=== PATIENT | male | born 1990 | race Caucasian/White ===

== ENCOUNTER 2018-04-02 13:18 | Emergency (ER) | payer MEDICARE, MEDICAID ==
[2018-04-02 13:28] VITALS: BP 149/96
--- NOTE | 2018-04-02 14:59 | ED Physician Documentation ---
History of Present Illness - Stated complaint Stated Complaint: ANXIETY - Chief complaint Chief Complaint: MHE - History obtained from History obtained from: Patient - Additonal information Additional information: The patient is a 28-year-old male who presents complaining of anxiety, with uncontrollable shaking today. He has had increased anxiety intermittently for the past month, but reports that today was more striking than usual. He has not been able to identify any specific trigger. He notes that he has not been sleeping well. He denies the use of alcohol or other drugs. He drank one cup of coffee this morning. There is been no recent change in his social setting. 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 He has a history of bipolar disorder, and is a patient at [facility], but was not able to be seen in the clinic today. Review of Systems Constitutional: reports: Fatigue. denies: Fever Ears: denies: Tinnitus/ringing Nose: denies: Congestion Throat: denies: Sore throat Cardiac: denies: Chest pain / pressure Respiratory: denies: Dyspnea, Cough GI: denies: Abdominal Pain, Nausea, Vomiting : denies: Dysuria Skin: denies: Rash Musculoskeletal: denies: Back pain Neurologic: denies: Focal weakness, Numbness, Altered mental status, Headache Psychiatric: reports: Anxiety PD PAST MEDICAL HISTORY - Past Medical History Respiratory: Asthma, Pneumonia Psych: Depression, Anxiety, Bipolar disorder, Schizophrenia - Past Surgical History Past Surgical History: No - Present Medications Home Medications: Ambulatory Orders Medication Instructions Recorded Confirmed Lorazepam [Ativan] 1 mg PO BID PRN #12 tablet 04/02/18 - Allergies Allergies/Adverse Reactions: Allergies Allergy/AdvReac Type Severity Reaction Status Date / Time cephalexin Allergy Unknown Verified 04/02/18 13:27 - Social History Does the pt smoke?: Yes Smoking Status: Never smoker Does the pt drink ETOH?: No Does the pt have substance abuse?: Yes - Immunizations Immunizations are current?: Yes - POLST Patient has POLST: No PD ED PE NORMAL - Vitals Vital signs reviewed: Yes (initially hypertensive.) - General General: Alert and oriented X 3, Well developed/nourished, Other (Appears solemn, with well-controlled anxiety at this time.) - HEENT HEENT: Atraumatic, Moist mucous membranes - Neck Neck: Supple, no meningeal sign, No adenopathy - Cardiac Cardiac: RRR - Respiratory Respiratory: No respiratory distress, Clear bilaterally - Abdomen Abdomen: Soft, Non tender - Derm Derm: No rash - Neuro Neuro: Alert and oriented X 3, No motor deficit, No sensory deficit, Normal speech - Psych Psych: Other (Blunted affect.) PD ED PE EXPANDED - Psych Psych: No: Suicidal, Homicidal Results - Vitals Vitals: Oxygen O2 Source Room air PD MEDICAL DECISION MAKING - ED course Complexity details: considered differential, d/w patient ED course: The patient's presentation is most consistent with an anxiety attack. His anxiety appears to be mostly under control at this time, but he appears distressed regarding the recurrent episodes. He has a follow-up appointment scheduled with his counselor at [facility]. He is being discharged with a prescription for lorazepam, 12 tablets. I discussed with him potentially worrisome signs or symptoms that should prompt reevaluation in the emergency department. Departure - Departure Disposition: 01 Home, Self Care Clinical Impression: Anxiety attack Condition: Stable Instructions: ED Stress React Prescriptions: Lorazepam [Ativan] 1 mg PO BID PRN #12 tablet PRN Reason: Anxiety Comments: Avoid coffee, elena, or other stimulants. Strive to get daily exercise as part of your routine. You can use lorazepam as prescribed if needed for anxiety reaction. Follow-up with primary physician within 2 weeks. Call to schedule appointment. Return to the emergency department if recurrent episodes of uncontrollable shaking, or otherwise worsening symptoms. Discharge Date/Time: 04/02/18 15:07
== END 2018-04-02 15:07 | disposition home or self-care (01) ==
LOC: ED 13:18
DX: F41.9 Anxiety disorder, unspecified (principal)
CPT/HCPCS: 99283

== ENCOUNTER 2018-04-09 12:02 | Emergency (ER) | payer MEDICARE, MEDICAID ==
[2018-04-09 12:13] VITALS: BP 145/87
--- NOTE | 2018-04-09 12:53 | ED Physician Documentation ---
History of Present Illness - Stated complaint Stated Complaint: NUMBNESS LT ARM - Chief complaint Chief Complaint: General - History obtained from History obtained from: Patient - History of Present Illness Timing: Chronic Pain level max: 0 Pain level now: 0 Improved by: ativan Worsened by: nothing - Additonal information Additional information: 28 year old male with a longstanding history of anxiety. States increasing anxiety since running out of ativan. was seen at [facility] But stopped going because he stated that the medications were not helping and he did not feel like he was getting any better. Review of Systems Constitutional: denies: Fever, Chills Ears: denies: Ear pain Nose: denies: Rhinorrhea / runny nose, Congestion Throat: denies: Sore throat Cardiac: reports: Chest pain / pressure (Patient states that he occasionally feels tightness in his chest when his anxiety worsens. He is not feeling this currently) Respiratory: denies: Cough GI: denies: Nausea, Vomiting Skin: denies: Rash Musculoskeletal: reports: Extremity pain (States that occasionally when he is having a panic attack his legs feel heavy). denies: Neck pain, Back pain PD PAST MEDICAL HISTORY - Past Medical History Respiratory: Asthma, Pneumonia Psych: Depression, Anxiety, Bipolar disorder, Schizophrenia - Past Surgical History Past Surgical History: No - Present Medications Home Medications: Ambulatory Orders Medication Instructions Recorded Confirmed Lorazepam [Ativan] 1 mg PO BID PRN #12 tablet 04/02/18 Lorazepam [Ativan] 1 mg PO BID #12 tablet 04/09/18 - Allergies Allergies/Adverse Reactions: Allergies Allergy/AdvReac Type Severity Reaction Status Date / Time cephalexin Allergy Unknown Verified 04/09/18 12:12 - Social History Does the pt smoke?: Yes Smoking Status: Never smoker Does the pt drink ETOH?: No Does the pt have substance abuse?: Yes - Immunizations Immunizations are current?: Yes - POLST Patient has POLST: No PD ED PE NORMAL - Vitals Vital signs reviewed: Yes - General General: Alert and oriented X 3, No acute distress - HEENT HEENT: Moist mucous membranes - Neck Neck: Supple, no meningeal sign - Cardiac Cardiac: RRR - Respiratory Respiratory: No respiratory distress, Clear bilaterally - Abdomen Abdomen: Soft, Non tender - Back Back: No spinal TTP - Derm Derm: Warm and dry - Neuro Neuro: Alert and oriented X 3 - Psych Psych: Other (very anxious) Results - Vitals Vitals: Vital Signs - 24 hr 04/09/18 12:10 Temperature 37 C Heart Rate 76 Respiratory 18 Rate Blood Pressure 145/87 H O2 Saturation 98 Oxygen O2 Source Room air - EKG (time done) 1220 Rate: Rate (enter#) (65) Rhythm: NSR [place]: Normal Intervals: Normal [place], RBBB (incomplete) Ischemia: Normal ST segments Compare to prior EKG: Old EKG unavailable PD MEDICAL DECISION MAKING - ED course Complexity details: reviewed results, re-evaluated patient, considered differential, d/w patient ED course: Patient is a 28-year-old male who presents to the emergency department with anxiety. He is well-appearing, nontoxic. Afebrile. Normal EKG. No evidence of acute coronary syndrome. Will place on a small amount of medication for home and have him follow-up with his doctor. No evidence of pneumothorax, pulmonary embolus, aortic dissection. Patient counseled regarding signs and symptoms for which I believe and urgent re-evaluation would be necessary. Patient with good understanding of and agreement to plan and is comfortable going home at this time This document was made in part using voice recognition software. While efforts are made to proofread this document, sound alike and grammatical errors may occur. Departure - Departure Disposition: 01 Home, Self Care Clinical Impression: Anxiety Condition: Good Instructions: ED Panic Attack Follow-Up: Stacie Brady [Other] [facility] [Provider Group] Prescriptions: Lorazepam [Ativan] 1 mg PO BID #12 tablet Comments: [id number], [address] [place], [place] [address] [email or web address] Follow up with your doctor for further care. Return if you worsen. do not drive or operate heavy machinery while on ativan. Forms: Activity restrictions Discharge Date/Time: 04/09/18 13:03
== END 2018-04-09 13:03 | disposition home or self-care (01) ==
LOC: ED 12:02
DX: F41.9 Anxiety disorder, unspecified (principal); I45.2 Bifascicular block
CPT/HCPCS: 93005; 99281; 99283

== ENCOUNTER 2018-05-06 10:51 | Emergency (ER) | payer MEDICARE, MEDICAID ==
[2018-05-06 11:02] VITALS: BP 160/81
--- NOTE | 2018-05-06 12:16 | ED Physician Documentation ---
PD HPI HEENT - Stated complaint Stated Complaint: SORE THROAT/ANXIETY - Chief complaint Chief Complaint: Heent - History obtained from History obtained from: Patient - History of Present Illness Timing - onset: How many weeks ago (1) Timing - duration: Weeks (1) Timing - details: Gradual onset, Still present Location: Nose, Throat Associated symptoms: Fever, Congestion, Rhinorrhea, Swollen nodes, Cough Similar symptoms before: Has not had sx before Recently seen: Not recently seen - Additional information Additional information: 28-year-old male with history of schizophrenia has developed a sore throat he does have a bit of a cough and a fever and he also has an area on his right inner thigh that has been inflamed and intermittently draining for the past 3 months. Review of Systems Constitutional: reports: Fever, Chills, Myalgias, Fatigue Eyes: denies: Decreased vision Ears: denies: Ear pain Nose: reports: Rhinorrhea / runny nose, Congestion Throat: reports: Sore throat Cardiac: denies: Chest pain / pressure, Palpitations Respiratory: reports: Cough. denies: Dyspnea GI: denies: Vomiting : denies: Dysuria Skin: reports: Lesions. denies: Rash Musculoskeletal: reports: Extremity pain. denies: Neck pain, Back pain Neurologic: denies: Generalized weakness, Focal weakness, Numbness PD PAST MEDICAL HISTORY - Past Medical History Past Medical History: Yes Respiratory: Asthma, Pneumonia Psych: Depression, Anxiety, Bipolar disorder, Schizophrenia - Past Surgical History Past Surgical History: No - Present Medications Home Medications: Ambulatory Orders Medication Instructions Recorded Confirmed Lorazepam [Ativan] 1 mg PO BID PRN #12 tablet 04/02/18 Lorazepam [Ativan] 1 mg PO BID #12 tablet 04/09/18 Amox/Clav 875/125 [Augmentin] 1 each PO Q12H #20 tablet 05/06/18 Lorazepam [Ativan] 1 mg PO BID PRN #12 tablet 05/06/18 - Allergies Allergies/Adverse Reactions: Allergies Allergy/AdvReac Type Severity Reaction Status Date / Time cephalexin Allergy Unknown Verified 05/06/18 11:02 - Social History Does the pt smoke?: Yes Smoking Status: Current every day smoker Does the pt drink ETOH?: No Does the pt have substance abuse?: Yes - Immunizations Immunizations are current?: Yes - POLST Patient has POLST: No PD ED PE NORMAL - Vitals Vital signs reviewed: Yes (hypertensive ) - General General: Alert and oriented X 3, No acute distress, Well developed/nourished - HEENT HEENT: Atraumatic, PERRL, EOMI, Ears normal, Other (There is unilateral tonsillar swelling on the right side and this is the side the patient has pain on. ) - Neck Neck: Supple, no meningeal sign, No bony TTP - Cardiac Cardiac: RRR, No murmur - Respiratory Respiratory: No respiratory distress, Clear bilaterally - Abdomen Abdomen: Soft, Non tender, Other (There is an inflamed area to the right medial thigh near the groin that has some hyperpigmentation consistent with long standing inflamation. There is no fluctuance and the area is firm about 1cmX 3cm. ) - Back Back: No CVA TTP, No spinal TTP - Derm Derm: Normal color, Warm and dry, No rash - Extremities Extremities: No deformity, No edema - Neuro Neuro: Alert and oriented X 3, bobj developer 2-12 intact, No motor deficit, No sensory deficit, Normal speech Eye Opening: Spontaneous Motor: Obeys Commands Verbal: Oriented GCS Score: 15 - Psych Psych: Normal mood, Normal affect Results - Vitals Vitals: Vital Signs - 24 hr 05/06/18 10:55 Temperature 36.8 C Heart Rate 86 Respiratory 18 Rate Blood Pressure 160/81 H O2 Saturation 100 Oxygen O2 Source Room air - Labs Labs: Laboratory Tests 05/06/18 10:57 Group A Strep Rapid Negative PD MEDICAL DECISION MAKING - ED course Complexity details: considered differential, d/w patient ED course: 28-year-old male with unilateral tonsillar swelling and pain has a negative rapid strep and he does have evidence of an infection in his thigh as well. This looks like he has had some problem for some time as there is some postinflammatory hyperpigmentation associated with this. He admits that his symptoms have undulated for the past 3 months and there has been drainage from the area. It is not currently draining or pointing. Patient is placed onto Augmentin and I have encouraged him to follow-up with a primary care doctor for reexamination as unilateral tonsillar swelling in an adult requires close follow-up for cancer surveillance. The patient is complaining of some significant persistent anxiety as well and he does have an appointment to see somebody at [facility] I have offered to provide him with a limited supply of Ativan that he has taken previously. Departure - Departure Disposition: 01 Home, Self Care Clinical Impression: Tonsillitis, Abscess of right thigh, Anxiety Condition: Stable Instructions: ED Panic Attack, ED Stress React, ED Tonsillitis, ED Staph Infec Abx Tx Only Follow-Up: [facility] [Provider Group] Prescriptions: Amox/Clav 875/125 [Augmentin] 1 each PO Q12H #20 tablet Lorazepam [Ativan] 1 mg PO BID PRN #12 tablet PRN Reason: Anxiety Comments: Today it looks like you have swelling in the right tonsil only and this is something that will need to be followed up with a primary care doctor. It is important to reexamine the tonsil when the inflammation is resolved.
== END 2018-05-06 12:30 | disposition home or self-care (01) ==
LOC: ED 10:51
DX: J03.90 Acute tonsillitis, unspecified (principal); L02.419 Cutaneous abscess of limb, unspecified; F41.9 Anxiety disorder, unspecified; F17.200 Nicotine dependence, unspecified, uncomplicated
CPT/HCPCS: 87070; 87430; 99283

== ENCOUNTER 2018-11-19 08:00 | Outpatient (CLI) | payer MEDICARE, MEDICAID ==
[2018-11-19 19:05] LABS: BASOPHILS % (AUTO) 0.4 %; EOSINOPHILS # (AUTO) 0.4 10^3/uL (0.0-0.7); EOSINOPHILS % (AUTO) 4.2 %; HGB - HEMOGLOBIN 14.7 g/dL (14.0-18.0); LYMPHOCYTES % (AUTO) 21.6 %; MEAN CORPUSCULAR HEMOGLOBIN 29.5 pg (27.0-31.0); MEAN CORPUSCULAR HGB CONC 32.8 g/dL (32.0-36.0); MEAN CORPUSCULAR VOLUME 89.8 fL (80.0-94.0); MEAN PLATELET VOLUME 10.8 fL (7.4-11.4); MONOCYTES # (AUTO) 0.9 10^3/uL (0.0-1.0); MONOCYTES % (AUTO) 9.4 %; NEUTROPHILS # (AUTO) 5.8 10^3/uL (1.5-6.6); NEUTROPHILS % (AUTO) 63.7 %; PLT - PLATELET COUNT 306 10^3/uL (130-450); RED BLOOD COUNT 4.99 10^6/uL (4.70-6.10); RED CELL DISTRIBUTION WIDTH 13.8 % (12.0-15.0); WHITE BLOOD COUNT 9.2 x10^3/uL (4.8-10.8)
[2018-11-19 20:05] LABS: HB2 TOTAL 15.2 g/dL; HEMOGLOBIN A1C 0.5 g/dL; HEMOGLOBIN A1C % 5.2 % (4.6-6.2)
== END 2018-11-19 23:59 | disposition home or self-care (01) ==
LOC: LAB.N 08:00
PROVIDERS: ATTEND Licensed Practical Nurse
DX: F32.9 Major depressive disorder, single episode, unspecified (principal); Z79.899 Other long term (current) drug therapy
CPT/HCPCS: 36415; 80053; 80061; 83036; 83721; 84443; 85025

== ENCOUNTER 2019-01-08 13:06 | Outpatient (CLI) | payer MEDICARE, MEDICAID ==
[2019-01-08 18:52] LABS: BASOPHILS % (AUTO) 0.5 %; EOSINOPHILS % (AUTO) 6.8 %; HGB - HEMOGLOBIN 14.4 g/dL (14.0-18.0); LYMPHOCYTES % (AUTO) 30.4 %; MEAN CORPUSCULAR HEMOGLOBIN 28.9 pg (27.0-31.0); MEAN CORPUSCULAR HGB CONC 32.6 g/dL (32.0-36.0); MEAN CORPUSCULAR VOLUME 88.8 fL (80.0-94.0); MEAN PLATELET VOLUME 10.3 fL (7.4-11.4); MONOCYTES % (AUTO) 10.9 %; NEUTROPHILS % (AUTO) 50.6 %; PLT - PLATELET COUNT 277 10^3/uL (130-450); RED BLOOD COUNT 4.98 10^6/uL (4.70-6.10); RED CELL DISTRIBUTION WIDTH 13.2 % (12.0-15.0); WHITE BLOOD COUNT 7.7 x10^3/uL (4.8-10.8)
[2019-01-08 19:06] LABS: CALCIUM 9.6 mg/dL (8.5-10.3)
[2019-01-08 19:24] LABS: ABNORMAL LYMPHS % (MANUAL) 0 %
[2019-01-08 20:03] LABS: BAND NEUTROPHILS % (MANUAL) 2 %; DIFFERENTIAL COMMENT MANUAL DIFFERENTIAL; EOSINOPHILS # (MANUAL) 0.3 10^3/uL (0-0.7); LYMPHOCYTES # (MANUAL) 2.2 10^3/uL (1.5-3.5); LYMPHOCYTES % (MANUAL) 29 %; METAMYELOCYTES % (MANUAL) 1 %; MONOCYTES # (MANUAL) 1.1 10^3/uL (0.0-1.0); PLATELET ESTIMATE, MANUAL NORMAL (130-450,000) (NORMAL); PLATELET MORPHOLOGY NORMAL APPEARANCE (NORMAL); RBC MORPHOLOGY (MULTIPLE) NORMAL APPEARANCE (NORMAL)
== END 2019-01-08 23:59 | disposition home or self-care (01) ==
LOC: LAB.N 13:06
PROVIDERS: ATTEND Physician Assistant Medical
DX: F20.9 Schizophrenia, unspecified (principal); R00.2 Palpitations; Z13.29 Encounter for screening for other suspected endocrine disorder
CPT/HCPCS: 36415; 80048; 84443; 85025

== ENCOUNTER 2019-05-05 10:27 | Emergency (ER) | payer MEDICARE, MEDICAID ==
--- NOTE | 2019-05-05 10:56 | ED Physician Documentation ---
History of Present Illness - Stated complaint Stated Complaint: NUMBNESS ARMS - Chief complaint Chief Complaint: MHE - History obtained from History obtained from: Patient - Additonal information Additional information: This is a 29-year-old man who presents with complaints that for the past week he has been waking up with both of his arms being numb down to just below the deltoid and he and having it "tic" in his inner arm. This is not really numbness as much as a decreased sensation through the arms. This is been having a feeling of anxiety as well over the past week with a pit in the pit of his stomach and his heart. He is never been treated for anxiety in the past he is not currently getting any counseling. He says he lives with his mother and is not working his father is in [place] and he has no friends around here. He has experienced some numbness and tingling in his fingertips. The symptoms always resolve except yesterday it just seem to be persistent. He denies feeling dizzy, nauseous or vomiting. He does not have palpitations or feel short of breath. No dysuria. He says he drinks about 1 beer a week but otherwise is "drug-free". He drinks decaffeinated coffee and avoids any caffeine-containing energy drinks. Denies any injury to his head or neck. Review of Systems Constitutional: denies: Fever Eyes: denies: Loss of vision Nose: denies: Congestion Throat: denies: Sore throat Cardiac: denies: Chest pain / pressure, Palpitations Respiratory: denies: Dyspnea, Cough GI: denies: Nausea, Vomiting, Diarrhea : denies: Dysuria, Frequency Skin: denies: Rash Musculoskeletal: denies: Neck pain, Back pain Neurologic: reports: Numbness. denies: Generalized weakness, Focal weakness, Near syncope, Syncope, Headache Psychiatric: reports: Anxiety PD PAST MEDICAL HISTORY - Past Medical History Respiratory: Asthma, Pneumonia Psych: Depression, Anxiety, Bipolar disorder, Schizophrenia - Past Surgical History Past Surgical History: No - Present Medications Home Medications: Ambulatory Orders Medication Instructions Recorded Confirmed Lorazepam [Ativan] 1 mg PO BID PRN #12 tablet 04/02/18 Lorazepam [Ativan] 1 mg PO BID #12 tablet 04/09/18 Amox/Clav 875/125 [Augmentin] 1 each PO Q12H #20 tablet 05/06/18 Lorazepam [Ativan] 1 mg PO BID PRN #12 tablet 05/06/18 LORazepam [Ativan] 0.5 mg PO Q8H #6 tablet 05/05/19 - Allergies Allergies/Adverse Reactions: Allergies Allergy/AdvReac Type Severity Reaction Status Date / Time cephalexin Allergy Unknown Verified 05/06/18 11:02 - Social History Does the pt smoke?: Yes Smoking Status: Current every day smoker Does the pt drink ETOH?: No Does the pt have substance abuse?: Yes - Immunizations Immunizations are current?: Yes - POLST Patient has POLST: No PD ED PE NORMAL - Vitals Vital signs reviewed: Yes - General General: Alert and oriented X 3, No acute distress, Well developed/nourished, Other (Patient appears very anxiousRubbing his hands against his pants and he is rapidly answering questions.) - HEENT HEENT: Atraumatic, PERRL, EOMI, Moist mucous membranes, Pharynx benign - Neck Neck: Supple, no meningeal sign, No adenopathy, Thyroid normal, No JVD - Cardiac Cardiac: RRR, No murmur, Strong equal pulses - Respiratory Respiratory: No respiratory distress, Clear bilaterally - Abdomen Abdomen: Normal bowel sounds, Soft, Non tender, No organomegaly - Derm Derm: Normal color, Warm and dry, No rash - Extremities Extremities: No deformity, No edema - Neuro Neuro: Alert and oriented X 3, portable irrigation operator 2-12 intact, No motor deficit, No sensory deficit, Normal speech, Other (He has a tremor) - Psych Psych: Normal mood, Normal affect Results - Vitals Vitals: Vital Signs - 24 hr 05/05/19 05/05/19 10:37 12:43 Temperature 36.7 C 36.6 C Heart Rate 83 81 Respiratory 18 16 Rate Blood Pressure 138/83 H 135/82 H O2 Saturation 98 99 Oxygen O2 Source Room air - Labs Labs: Laboratory Tests 05/05/19 05/05/19 05/05/19 11:30 11:30 11:30 WBC 11.6 H RBC 5.58 Hgb 16.6 Hct 49.1 MCV 88.0 MCH 29.7 MCHC 33.8 RDW 12.7 Plt Count 317 MPV 9.3 Neut # (Auto) 7.9 H Lymph # (Auto) 2.3 [place] # (Auto) 0.8 Eos # (Auto) 0.5 Baso # (Auto) 0.1 Absolute Nucleated RBC 0.00 Nucleated RBC % 0.0 Sodium 138 Potassium 4.2 Chloride 104 Carbon Dioxide 27 Anion Gap 7.0 BUN 18 Creatinine 1.1 Estimated GFR (MDRD) 80 L Glucose 92 Calcium 9.4 TSH 2.02 Urine Color Urine Clarity Urine pH Ur Specific [place] Urine Protein Urine Glucose (UA) Urine Ketones Urine Occult Blood Urine Nitrite Urine Bilirubin Urine Urobilinogen Ur Leukocyte Esterase Ur Microscopic Review Urine Culture Comments Urine Opiates Screen Ur Oxycodone Screen Urine Methadone Screen Ur Propoxyphene Screen Ur Barbiturates Screen Ur Tricyclics Screen Ur Phencyclidine Scrn Ur Amphetamine Screen U Methamphetamines Scrn U Benzodiazepines Scrn Urine Cocaine Screen U Cannabinoids Screen 05/05/19 12:35 WBC RBC Hgb Hct MCV MCH MCHC RDW Plt Count MPV Neut # (Auto) Lymph # (Auto) [place] # (Auto) Eos # (Auto) Baso # (Auto) Absolute Nucleated RBC Nucleated RBC % Sodium Potassium Chloride Carbon Dioxide Anion Gap BUN Creatinine Estimated GFR (MDRD) Glucose Calcium TSH Urine Color YELLOW Urine Clarity CLEAR Urine pH 5.5 Ur Specific [place] 1.020 Urine Protein NEGATIVE Urine Glucose (UA) NEGATIVE Urine Ketones NEGATIVE Urine Occult Blood NEGATIVE Urine Nitrite NEGATIVE Urine Bilirubin NEGATIVE Urine Urobilinogen 0.2 (NORMAL) Ur Leukocyte Esterase NEGATIVE Ur Microscopic Review NOT INDICATED Urine Culture Comments NOT INDICATED Urine Opiates Screen NEGATIVE Ur Oxycodone Screen NEGATIVE Urine Methadone Screen NEGATIVE Ur Propoxyphene Screen NEGATIVE Ur Barbiturates Screen NEGATIVE Ur Tricyclics Screen NEGATIVE Ur Phencyclidine Scrn NEGATIVE Ur Amphetamine Screen NEGATIVE U Methamphetamines Scrn NEGATIVE U Benzodiazepines Scrn NEGATIVE Urine Cocaine Screen NEGATIVE U Cannabinoids Screen NEGATIVE PD MEDICAL DECISION MAKING - ED course Complexity details: reviewed results ED course: CBC and BMP are normal. His urine is negative and drug screen is negative TSH is still pending. The patient requested to nursing staff that he was ready to go because he wants to eat. He will be referred to [facility] and can follow-up on the TSH as an outpatient. He drove himself hearing t herefore cannot be treated with any acute anxiety medications. I will give him a prescription for 6 Ativan 0.5 mg tablets to be used as needed and impressed upon him that he needs primary care follow-up for further medications to treat his anxious. His TSH is normal. Departure - Departure Disposition: 01 Home, Self Care Clinical Impression: Anxiety Condition: Good Instructions: ED Panic Attack Follow-Up: [facility] [Provider Group] Prescriptions: LORazepam [Ativan] 0.5 mg PO Q8H #6 tablet Comments: We do not have the results of your thyroid screen yet. I will check it later but it can also be obtained through follow-up with the primary care provider. I provided a prescription for just a few doses of an anti-anxiety medication. The most effective treatment for anxiety involves counseling in addition to potential medication support. You need to establish with a primary care provider for further management of your symptoms. Discharge Date/Time: 05/05/19 13:18
[2019-05-05 11:36] LABS: BASOPHILS # (AUTO) 0.1 10^3/uL (0.0-0.1); BASOPHILS % (AUTO) 0.6 %; EOSINOPHILS # (AUTO) 0.5 10^3/uL (0.0-0.7); EOSINOPHILS % (AUTO) 4.1 %; HGB - HEMOGLOBIN 16.6 g/dL (14.0-18.0); LYMPHOCYTES # (AUTO) 2.3 10^3/uL (1.5-3.5); LYMPHOCYTES % (AUTO) 19.7 %; MEAN CORPUSCULAR HEMOGLOBIN 29.7 pg (27.0-31.0); MEAN CORPUSCULAR HGB CONC 33.8 g/dL (32.0-36.0); MEAN PLATELET VOLUME 9.3 fL (7.4-11.4); MONOCYTES # (AUTO) 0.8 10^3/uL (0.0-1.0); MONOCYTES % (AUTO) 6.8 %; NEUTROPHILS # (AUTO) 7.9 10^3/uL (1.5-6.6); NEUTROPHILS % (AUTO) 68.2 %; PLT - PLATELET COUNT 317 10^3/uL (130-450); RED BLOOD COUNT 5.58 10^6/uL (4.70-6.10); RED CELL DISTRIBUTION WIDTH 12.7 % (12.0-15.0); WHITE BLOOD COUNT 11.6 x10^3/uL (4.8-10.8)
[2019-05-05 11:46] LABS: CALCIUM 9.4 mg/dL (8.5-10.3); CREATININE 1.1 mg/dL (0.6-1.2)
[2019-05-05 12:41] LABS: MUDS CUTOFF CONCENTRATIONS CUTOFF CONC BELOW:
[2019-05-05 12:43] VITALS: BP 135/82
[2019-05-05 12:52] LABS: BILIRUBIN,URINE NEGATIVE (NEGATIVE); GLUCOSE, URINE (UA) NEGATIVE (NEGATIVE); KETONES,URINE (UA) NEGATIVE (NEGATIVE); LEUKOCYTE ESTERASE, URINE NEGATIVE (NEGATIVE); NITRITE,URINE NEGATIVE (NEGATIVE); OCCULT BLOOD,URINE NEGATIVE (NEGATIVE); PH,URINE 5.5 PH (5.0-7.5); PROTEIN,URINE NEGATIVE (NEGATIVE); UROBILINOGEN,URINE 0.2 (NORMAL) E.U./dL (NORMAL)
[2019-05-05 12:53] LABS: CLARITY,URINE CLEAR (CLEAR)
[2019-05-05 13:03] LABS: AMPHETAMINE SCREEN,URINE NEGATIVE (NEGATIVE); BENZODIAZEPINES SCREEN, URINE NEGATIVE (NEGATIVE); COCAINE SCREEN URINE NEGATIVE (NEGATIVE); METHADONE SCREEN, URINE NEGATIVE (NEGATIVE); METHAMPHETAMINES SCREEN, URINE NEGATIVE (NEGATIVE); OPIATE SCREEN, URINE NEGATIVE (NEGATIVE); OXYCODONE SCREEN, URINE NEGATIVE (NEGATIVE); PROPOXYPHENE SCREEN, URINE NEGATIVE (NEGATIVE); TRICYCLIC ANTIDEPRESSANT,URINE NEGATIVE (NEGATIVE)
== END 2019-05-05 13:18 | disposition home or self-care (01) ==
LOC: ED 10:27
DX: F41.9 Anxiety disorder, unspecified (principal); I45.10 Unspecified right bundle-branch block; R94.31 Abnormal electrocardiogram [ECG] [EKG]; F17.200 Nicotine dependence, unspecified, uncomplicated
CPT/HCPCS: 36415; 80048; 80306; 81001; 81003; 84443; 85025; 87086; 93005; 99283; 99284

== ENCOUNTER 2019-06-24 08:00 | Outpatient (CLI) | payer MEDICARE, MEDICAID ==
[2019-06-24 18:51] LABS: BUN - BLOOD UREA NITROGEN 14 mg/dL (6-20); CALCIUM 9.5 mg/dL (8.5-10.3); CARBON DIOXIDE - CO2 27 mmol/L (21-32); CHLORIDE 105 mmol/L (101-111); CHOLESTEROL 239 mg/dL; CREATININE 1.1 mg/dL (0.6-1.2); GFR - MDRD 80 (>89); GLUCOSE 93 mg/dL (70-100); HDL CHOLESTEROL 34 mg/dL; LDL CHOLESTEROL,CALCULATED 181 mg/dL; LDL/HDL RATIO 5.3 (<3.6); SODIUM 140 mmol/L (135-145); VLDL CHOLESTEROL 24 mg/dL
== END 2019-06-24 08:01 | disposition home or self-care (01) ==
LOC: LAB.N 08:00
PROVIDERS: ATTEND Clinical Nurse Specialist Psychiatric/Mental Health
DX: Z79.899 Other long term (current) drug therapy (principal)
CPT/HCPCS: 36415; 80048; 80061; 83721

== ENCOUNTER 2019-06-28 15:21 | Emergency (ER) | payer MEDICARE, MEDICAID ==
[2019-06-28 15:28] VITALS: BP 141/83
== END 2019-06-28 16:25 | disposition left against medical advice (07) ==
LOC: ED 15:21
DX: Z53.21 Procedure and treatment not carried out due to patient leaving prior to being seen by health care provider (principal)

== ENCOUNTER 2019-12-24 14:05 | Emergency (ER) | payer MEDICARE, MEDICAID ==
--- NOTE | 2019-12-24 14:18 | ED Physician Documentation ---
PD HPI CHEST PAIN - Stated complaint Stated Complaint: ANXIETY, GA, ARM/CHEST NUMBNESS - Chief complaint Chief Complaint: General - History obtained from History obtained from: Patient - History of Present Illness Timing - onset: How many days ago (The patient has had particularly 5 or 6 days of left chest discomfort associated with left arm tingling and a throbbing right-sided headache. These are not all at the same time. He had had similar symptoms intermittently for about a month but more consistent now) Timing - onset during: Light activity Timing - details: Gradual onset, Still present, Waxing and waning Quality: Tightness (left chest). No: Sharp, Stabbing Location: Left chest, Left shoulder/arm (with tingling feeling, particularly when awakening in the mornings.) Radiation: Left upper extremity Improved by: Other (arm numbness improves with use of it after awakening.) Associated symptoms: Feeling faint / dizzy, Other (right sided headache). No: Shortness of air, Nausea, Cough Similar symptoms before: No diagnosis (intermittent symptoms the past month or two) Recently seen: Not recently seen (Denies any recent appointments with his primary care or his counseling. He denies being on any current medications.) Review of Systems Constitutional: denies: Fever, Chills Nose: denies: Rhinorrhea / runny nose, Congestion Throat: denies: Sore throat Cardiac: reports: Chest pain / pressure. denies: Palpitations, Pedal edema, Calf pain Respiratory: denies: Dyspnea, Cough, Wheezing GI: denies: Abdominal Pain, Nausea, Vomiting, Diarrhea Neurologic: reports: Numbness, Headache. denies: Focal weakness, Difficulty speaking, Near syncope, Altered mental status, Head injury Psychiatric: reports: Depressed, Anxiety, Other (states he has been hearing vague voices without command statements. He is aware of them not being real but is still bothered and makes him more anxious.). denies: Suicidal PD PAST MEDICAL HISTORY - Past Medical History Respiratory: Asthma, Pneumonia Psych: Depression, Anxiety, Bipolar disorder, Schizophrenia - Past Surgical History Past Surgical History: No - Present Medications Home Medications: Ambulatory Orders Medication Instructions Recorded Confirmed Lorazepam [Ativan] 1 mg PO BID PRN #12 tablet 04/02/18 Lorazepam [Ativan] 1 mg PO BID #12 tablet 04/09/18 Amox/Clav 875/125 [Augmentin] 1 each PO Q12H #20 tablet 05/06/18 Lorazepam [Ativan] 1 mg PO BID PRN #12 tablet 05/06/18 LORazepam [Ativan] 0.5 mg PO Q8H #6 tablet 05/05/19 LORazepam [Ativan] 1 mg PO QPM PRN #5 tablet 12/24/19 Naproxen 500 mg PO BID #25 tablet 12/24/19 OLANZapine [Olanzapine] 5 mg PO BID #40 tablet 12/24/19 - Allergies Allergies/Adverse Reactions: Allergies Allergy/AdvReac Type Severity Reaction Status Date / Time cephalexin Allergy Unknown Verified 06/28/19 15:23 - Social History Does the pt smoke?: Yes Smoking Status: Current every day smoker Does the pt drink ETOH?: No Does the pt have substance abuse?: Yes - Immunizations Immunizations are current?: Yes - POLST Patient has POLST: No PD ED PE NORMAL - Vitals Vital signs reviewed: Yes - General General: Alert and oriented X 3, Well developed/nourished, Other (seems anxious, but is pleasant and conversant) - HEENT HEENT: Pharynx benign - Neck Neck: Supple, no meningeal sign, No adenopathy - Cardiac Cardiac: RRR, No murmur - Respiratory Respiratory: Clear bilaterally - Abdomen Abdomen: Normal bowel sounds, Soft, Non tender, Non distended - Derm Derm: Normal color, Warm and dry - Extremities Extremities: Normal ROM s pain, No edema, No calf tenderness / cord - Neuro Neuro: Alert and oriented X 3, No motor deficit, Normal speech Eye Opening: Spontaneous Motor: Obeys Commands Verbal: Oriented GCS Score: 15 - Psych Psych: No: Normal affect (somewhat anxious but aware of it. He states he is hearing some voices but no commands nor ideation of selfharm. ) Results - Vitals Vitals: Vital Signs - 24 hr 12/24/19 12/24/19 14:09 16:16 Temperature 36.6 C Heart Rate 74 67 Respiratory 14 18 Rate Blood Pressure 133/69 H 134/85 H O2 Saturation 98 99 Oxygen O2 Source Room air - EKG (time done) 14:46 Rate: Rate (enter#) (68) Rhythm: NSR [place]: Normal Intervals: RBBB (incomplete) Ischemia: Normal ST segments. No: ST elevation c/w ischemia, ST depression Compare to prior EKG: Unchanged from prior EKG (dated 05/05/2019) - Labs Labs: Laboratory Tests 12/24/19 12/24/19 12/24/19 14:40 14:50 14:50 WBC 9.5 RBC 5.60 Hgb 17.0 Hct 50.0 MCV 89.3 MCH 30.4 MCHC 34.0 RDW 13.2 Plt Count 299 MPV 9.9 Neut # (Auto) 5.6 Lymph # (Auto) 2.7 [place] # (Auto) 0.7 Eos # (Auto) 0.4 Baso # (Auto) 0.1 Absolute Nucleated RBC 0.00 Nucleated RBC % 0.0 Sodium 137 Potassium 3.9 Chloride 100 L Carbon Dioxide 25 Anion Gap 12.0 BUN 21 H Creatinine 1.1 Estimated GFR (MDRD) 80 L Glucose 85 Calcium 9.2 Total Bilirubin 0.9 AST 21 ALT 28 Alkaline Phosphatase 51 Total Creatine Kinase 134 Troponin I High Sens Total Protein 7.7 Albumin 4.6 Globulin 3.1 Albumin/Globulin Ratio 1.5 Lipase 28 TSH Urine Color YELLOW Urine Clarity CLEAR Urine pH 5.5 Ur Specific Brave >=1.030 H Urine Protein NEGATIVE Urine Glucose (UA) NEGATIVE Urine Ketones NEGATIVE Urine Occult Blood NEGATIVE Urine Nitrite NEGATIVE Urine Bilirubin NEGATIVE Urine Urobilinogen 0.2 (NORMAL) Ur Leukocyte Esterase NEGATIVE Ur Microscopic Review NOT INDICATED Urine Culture Comments NOT INDICATED Salicylates < 6.0 Urine Opiates Screen NEGATIVE Ur Oxycodone Screen NEGATIVE Urine Methadone Screen NEGATIVE Ur Propoxyphene Screen NEGATIVE Acetaminophen < 10 L Ur Barbiturates Screen NEGATIVE Ur Tricyclics Screen NEGATIVE Ur Phencyclidine Scrn NEGATIVE Ur Amphetamine Screen NEGATIVE U Methamphetamines Scrn NEGATIVE U Benzodiazepines Scrn NEGATIVE Urine Cocaine Screen NEGATIVE U Cannabinoids Screen NEGATIVE Ethyl Alcohol < 5.0 12/24/19 12/24/19 14:50 14:50 WBC RBC Hgb Hct MCV MCH MCHC RDW Plt Count MPV Neut # (Auto) Lymph # (Auto) [place] # (Auto) Eos # (Auto) Baso # (Auto) Absolute Nucleated RBC Nucleated RBC % Sodium Potassium Chloride Carbon Dioxide Anion Gap BUN Creatinine Estimated GFR (MDRD) Glucose Calcium Total Bilirubin AST ALT Alkaline Phosphatase Total Creatine Kinase Troponin I High Sens < 2.3 L Total Protein Albumin Globulin Albumin/Globulin Ratio Lipase TSH 2.51 Urine Color Urine Clarity Urine pH Ur Specific [place] Urine Protein Urine Glucose (UA) Urine Ketones Urine Occult Blood Urine Nitrite Urine Bilirubin Urine Urobilinogen Ur Leukocyte Esterase Ur Microscopic Review Urine Culture Comments Salicylates Urine Opiates Screen Ur Oxycodone Screen Urine Methadone Screen Ur Propoxyphene Screen Acetaminophen Ur Barbiturates Screen Ur Tricyclics Screen Ur Phencyclidine Scrn Ur Amphetamine Screen U Methamphetamines Scrn U Benzodiazepines Scrn Urine Cocaine Screen U Cannabinoids Screen Ethyl Alcohol - Rads (name of study) head CT Radiology: Prelim report reviewed, See rad report (no acute process) chest xray Radiology: Prelim report reviewed (no acute process), See rad report PD MEDICAL DECISION MAKING - ED course Complexity details: reviewed results, re-evaluated patient (tests are good which is reassuring to him. He agrees to medicaitons and following up, gladly wanting to do so. ), considered differential, d/w patient, d/w area development consultant (MARGOTH Monsivais spoke with patient and felt he would benefit from counseling and some medication for his symptoms/anxiety, but did not feel he was harmful/needing detaining and patient wanted outpt meds and not hospitalization. MARGOTH was going to call and talk with his Mother with pt consent. ) Departure - Departure Disposition: 01 Home, Self Care Clinical Impression: Headache, Chest discomfort, Anxiety, Disorganized thought process Condition: Stable Record reviewed to determine appropriate education?: Yes Instructions: ED Chest Pain Atypical Unkn Cause, ED Psychosis [facility] [Provider Group] Prescriptions: LORazepam [Ativan] 1 mg PO QPM PRN #5 tablet PRN Reason: Insomnia Naproxen 500 mg PO BID #25 tablet OLANZapine [Olanzapine] 5 mg PO BID #40 tablet Comments: For the chest discomfort and headache, I would suggest trying naproxen anti-inf lammatory twice daily with food for the next 7 to 10 days. For the anxiety and thought process disturbance, take olanzapine 5 mg twice daily. You can add lorazepam 1 mg at night to help with sleep as well. Follow-up with local counseling, call [facility] for an appointment and also the [facility] or your previous primary care for follow-up appointment in the next week or so. Return as needed for worsening symptoms but I think the above medication should help. Discharge Date/Time: 12/24/19 16:16
[2019-12-24] MEDS ORDERED: KETOROLAC 15 MG/ML VIAL IVP STA (14:38)
[2019-12-24] MEDS ORDERED: SODIUM CHLORIDE 0.9% 1,000 ML IV STA (14:38)
[2019-12-24 14:54] LABS: MUDS CUTOFF CONCENTRATIONS CUTOFF CONC BELOW:
[2019-12-24 14:55] LABS: BASOPHILS # (AUTO) 0.1 10^3/uL (0.0-0.1); BASOPHILS % (AUTO) 0.5 %; EOSINOPHILS # (AUTO) 0.4 10^3/uL (0.0-0.7); EOSINOPHILS % (AUTO) 4.6 %; LYMPHOCYTES # (AUTO) 2.7 10^3/uL (1.5-3.5); LYMPHOCYTES % (AUTO) 28.2 %; MEAN CORPUSCULAR HEMOGLOBIN 30.4 pg (27.0-31.0); MEAN CORPUSCULAR VOLUME 89.3 fL (80.0-94.0); MEAN PLATELET VOLUME 9.9 fL (7.4-11.4); MONOCYTES # (AUTO) 0.7 10^3/uL (0.0-1.0); MONOCYTES % (AUTO) 7.6 %; NEUTROPHILS # (AUTO) 5.6 10^3/uL (1.5-6.6); NEUTROPHILS % (AUTO) 58.6 %; PLT - PLATELET COUNT 299 10^3/uL (130-450); RED CELL DISTRIBUTION WIDTH 13.2 % (12.0-15.0); WHITE BLOOD COUNT 9.5 x10^3/uL (4.8-10.8)
[2019-12-24 14:55] LABS: BILIRUBIN,URINE NEGATIVE (NEGATIVE); GLUCOSE, URINE (UA) NEGATIVE (NEGATIVE); KETONES,URINE (UA) NEGATIVE (NEGATIVE); LEUKOCYTE ESTERASE, URINE NEGATIVE (NEGATIVE); NITRITE,URINE NEGATIVE (NEGATIVE); OCCULT BLOOD,URINE NEGATIVE (NEGATIVE); PH,URINE 5.5 PH (5.0-7.5); PROTEIN,URINE NEGATIVE (NEGATIVE); UROBILINOGEN,URINE 0.2 (NORMAL) E.U./dL (NORMAL)
[2019-12-24 14:56] LABS: CLARITY,URINE CLEAR (CLEAR)
[2019-12-24 15:07] LABS: AMPHETAMINE SCREEN,URINE NEGATIVE (NEGATIVE); BENZODIAZEPINES SCREEN, URINE NEGATIVE (NEGATIVE); COCAINE SCREEN URINE NEGATIVE (NEGATIVE); METHADONE SCREEN, URINE NEGATIVE (NEGATIVE); METHAMPHETAMINES SCREEN, URINE NEGATIVE (NEGATIVE); OPIATE SCREEN, URINE NEGATIVE (NEGATIVE); OXYCODONE SCREEN, URINE NEGATIVE (NEGATIVE); PROPOXYPHENE SCREEN, URINE NEGATIVE (NEGATIVE); TRICYCLIC ANTIDEPRESSANT,URINE NEGATIVE (NEGATIVE)
[2019-12-24 15:11] LABS: ACETAMINOPHEN < 10 ug/mL (10-30); ALBUMIN 4.6 g/dL (3.2-5.5); ALBUMIN/GLOBULIN RATIO 1.5 (1.0-2.2); ALKALINE PHOSPHATASE 51 IU/L (42-121); ALT ALANINE AMINOTRANSFERASE 28 IU/L (10-60); AST ASPARTATE AMINOTRANSFERASE 21 IU/L (10-42); BILIRUBIN,TOTAL 0.9 mg/dL (0.2-1.0); BUN - BLOOD UREA NITROGEN 21 mg/dL (6-20); CALCIUM 9.2 mg/dL (8.5-10.3); CARBON DIOXIDE - CO2 25 mmol/L (21-32); CHLORIDE 100 mmol/L (101-111); CK- CREATINE KINASE 134 IU/L (22-269); CREATININE 1.1 mg/dL (0.6-1.2); GLUCOSE 85 mg/dL (70-100); LIPASE 28 U/L (22-51); SALICYLATE < 6.0 mg/dL; SODIUM 137 mmol/L (135-145); TOTAL PROTEIN 7.7 g/dL (6.7-8.2)
--- NOTE | 2019-12-24 15:12 | CT Report ---
PROCEDURE: HEAD WO INDICATIONS: headache and throbbing for a week TECHNIQUE: Noncontrast 4.5 mm thick angled axial sections acquired from the foramen magnum to the vertex. For r adiation dose reduction, the following was used: automated exposure control, adjustment of mA and/or kV according to patient size. COMPARISON: None. FINDINGS: Image quality: Excellent. CSF spaces: Basal cisterns are patent. No extra-axial fluid collections. Ventricles are normal in size and shape. Brain: No midline shift. No intracranial masses or hemorrhage. [place]-white matter interface is norm al. Skull and face: Calvarium and visualized facial bones are intact, without suspicious lesions. Sinuses: Visualized sinuses and mastoids are clear. IMPRESSION: 1. No acute intracranial process. Reviewed by: Evelin Sarah MD on 12/24/2019 3:10 PM PDT Approved by: Evelin Sarah MD on 12/24/2019 3:10 PM PDT Station ID: [id number]
--- NOTE | 2019-12-24 15:31 | XRAY Report ---
PROCEDURE: Chest 1 View X-Ray INDICATIONS: chest pain TECHNIQUE: One view of the chest was acquired. COMPARISON: 01/04/2015 FINDINGS: Surgical changes and devices: None. Lungs and pleura: No pleural effusions or pneumothorax. Lungs are clear. Mediastinum: Mediastinal contours appear normal. Heart size is normal. Bones and chest wall: No suspicious bony lesions. Overlying soft tissues appear unremarkable. IMPRESSION: No acute cardiopulmonary pathology. Reviewed by: Holland Zamora MD on 12/24/2019 3:30 PM PDT Approved by: Holland Zamora MD on 12/24/2019 3:30 PM PDT Station ID: [id number]
[2019-12-24] MEDS ORDERED: LORazepam 2 MG/ML VIAL IVP STA (16:00)
[2019-12-24] MEDS ORDERED: OLANZapine ODT 5 MG TABLET TL ONE (16:00)
[2019-12-24 16:17] VITALS: BP 134/85
== END 2019-12-24 16:16 | disposition home or self-care (01) ==
LOC: ED 14:05
DX: R51 Headache (principal); R07.89 Other chest pain; F41.9 Anxiety disorder, unspecified; R41.89 Other symptoms and signs involving cognitive functions and awareness; F17.200 Nicotine dependence, unspecified, uncomplicated
CPT/HCPCS: 36415; 70450; 71045; 80053; 81003; 82550; 83690; 84443; 84484; 85025; 93005; 96361; 96374; 96375; 99284; A9270; J2060; 80306; 80307; 80320; 80329; 81001; 87086

== ENCOUNTER 2020-05-06 16:50 | Emergency (ER) | payer MEDICARE, MEDICAID ==
--- NOTE | 2020-05-06 17:29 | ED Physician Documentation ---
PD HPI SKIN - Stated complaint Stated Complaint: MALE /BILAT LEG OOZE - Chief complaint Chief Complaint: Wound - History obtained from History obtained from: Patient - Additional information Additional information: Has had painful generally worsening lesions in the groin, right worse than left and some lesions in the armpits as well. He popped what a few days ago and it "smelled like ." He feels mildly generally ill with aches and chills. No measured fevers. Review of Systems Constitutional: reports: Reviewed and negative Eyes: reports: Reviewed and negative Ears: reports: Reviewed and negative Nose: reports: Reviewed and negative Throat: reports: Reviewed and negative PD PAST MEDICAL HISTORY - Past Medical History Respiratory: Asthma, Pneumonia Psych: Depression, Anxiety, Bipolar disorder, Schizophrenia - Past Surgical History Past Surgical History: No - Present Medications Home Medications: Ambulatory Orders Medication Instructions Recorded Confirmed Lorazepam [Ativan] 1 mg PO BID PRN #12 tablet 04/02/18 Lorazepam [Ativan] 1 mg PO BID #12 tablet 04/09/18 Amox/Clav 875/125 [Augmentin] 1 each PO Q12H #20 tablet 05/06/18 Lorazepam [Ativan] 1 mg PO BID PRN #12 tablet 05/06/18 LORazepam [Ativan] 0.5 mg PO Q8H #6 tablet 05/05/19 LORazepam [Ativan] 1 mg PO QPM PRN #5 tablet 12/24/19 Naproxen 500 mg PO BID #25 tablet 12/24/19 OLANZapine [Olanzapine] 5 mg PO BID #40 tablet 12/24/19 Doxycycline Hyclate 100 mg PO BID #20 tablet. 05/06/20 HYDROcod/ACETAM 5/325 [[place] 5/325] 1 - 2 tab PO Q6H PRN #15 tablet 05/06/20 - Allergies Allergies/Adverse Reactions: Allergies Allergy/AdvReac Type Severity Reaction Status Date / Time cephalexin Allergy Unknown Verified 05/06/20 17:02 - Social History Does the pt smoke?: Yes Smoking Status: Current every day smoker Does the pt drink ETOH?: No Does the pt have substance abuse?: Yes - Immunizations Immunizations are current?: Yes - POLST Patient has POLST: No PD ED PE NORMAL - Vitals Vital signs reviewed: Yes - General General: Alert and oriented X 3, No acute distress - Neck Neck: Supple, no meningeal sign, No bony TTP - Derm Derm: Other (The anterior groins have the appearance of hidradenitis suppurativa with multiple small abscesses and a lot of scar formation, there is also some scarring in the left axilla as well.) - Neuro Neuro: Alert and oriented X 3, Normal speech Results - Vitals Vitals: Vital Signs - 24 hr 05/06/20 17:02 Temperature 36.6 C Heart Rate 80 Respiratory 16 Rate Blood Pressure 141/75 H O2 Saturation 99 Oxygen O2 Source Room air Departure - Departure Disposition: Home, Self Care Clinical Impression: Hidradenitis suppurativa Condition: Good Record reviewed to determine appropriate education?: Yes Instructions: Hidradenitis Suppurativa Prescriptions: Doxycycline Hyclate 100 mg PO BID #20 tablet. HYDROcindia/ACETAM 5/325 [[place] 5/325] 1 - 2 tab PO Q6H PRN #15 tablet PRN Reason: Pain Comments: You have a condition known as hidradenitis suppurativa, this is due to abnormal sweat glands in your skin putting you at risk for constant skin infections. As a general rule we try not to do incisions and drainages on these as it tends to increase the amount of scar tissue. You need to follow-up with a primary care physician for further evaluation and treatment and potentially eventual referral to a plastic surgeon for definitive treatment if conservative measures do not work. Return as needed for new or worsening symptoms. Do not drink or drive while taking prescription pain medication.
[2020-05-06 17:38] VITALS: BP 129/71
== END 2020-05-06 17:30 | disposition home or self-care (01) ==
LOC: ED 16:50
DX: L73.2 Hidradenitis suppurativa (principal); L02.214 Cutaneous abscess of groin; F17.200 Nicotine dependence, unspecified, uncomplicated
CPT/HCPCS: 99282; 99283

== ENCOUNTER 2020-05-21 06:56 | Emergency (ER) | payer MEDICARE, MEDICAID ==
[2020-05-21 07:51] LABS: MUDS CUTOFF CONCENTRATIONS CUTOFF CONC BELOW:
--- NOTE | 2020-05-21 07:52 | ED Physician Documentation ---
PD HPI ALTERED MENTAL STATUS - Stated complaint Stated Complaint: CHEST PX - Chief complaint Chief Complaint: MHE - History obtained from History obtained from: Patient - History of Present Illness Timing - onset: How many years ago (1) Timing - duration: Years (1) Timing - details: Gradual onset, Still present, Waxing and waning Quality / character: Hallucinating Associated symptoms: Cough, Other (chest pain). No: Fever, Headache, Stiff neck, Dyspnea, NVD, Urinary sx, General weakness, Focal weakness, Seizure activity, Syncope Contributing factors: Known psych illness. No: Recent illness, Recent injury Basline status: Alert and oriented X 3, Ambulatory, Independent Similar symptoms before: Diagnosis (schziophrenia and amphetamine abuse) Recently seen: Not recently seen - Additional information Additional information: 30-year-old schizophrenic male on Abilify he has had increased hallucinations over the past year and indicates that over the past month this has become even worse and he is having persistent hallucinations of . He is feeling his brain being pulled out he is feeling his teeth being pulled out he is developed some glasslike sharp pain in his chest is developed some numbness in his left arm. He denies any current use of methamphetamine and states that when he did this previously it was for about a month and resolved after he stopped using. He does have 1 prior hospitalization about 4 years ago. He does have a counselor. He indicates that he is having a difficult time getting this "out of my head ". He has not recently been ill but does have cough and congestion nearly continuously. He is currently living with his mother in [place]. She is contacted in the case with the permission of the patient and indicates that over the past week the patient has not been sleeping and has increased hallucinations. His chest pain delusion has been present a number of times previously. She indicates he has a counsellor and a PAC team at [facility]. Review of Systems Constitutional: denies: Fever Eyes: denies: Decreased vision Ears: denies: Ear pain Nose: reports: Congestion. denies: Rhinorrhea / runny nose Throat: denies: Sore throat Cardiac: reports: Chest pain / pressure. denies: Palpitations, Pedal edema, Calf pain Respiratory: reports: Cough, Wheezing. denies: Dyspnea GI: denies: Abdominal Pain, Nausea, Vomiting : denies: Dysuria, Frequency Skin: denies: Rash Musculoskeletal: denies: Neck pain, Back pain, Extremity pain Neurologic: denies: Generalized weakness, Focal weakness, Numbness Psychiatric: reports: Hallucinations, Delusions, Insomnia PD PAST MEDICAL HISTORY - Past Medical History Past Medical History: Yes Cardiovascular: None Respiratory: Asthma, Pneumonia Neuro: None Endocrine/Autoimmune: None GI: None : None HEENT: None Psych: Depression, Anxiety, Bipolar disorder, Schizophrenia Musculoskeletal: None Derm: None - Past Surgical History Past Surgical History: No - Present Medications Home Medications: Ambulatory Orders Medication Instructions Recorded Confirmed Aripiprazole [Abilify] 15 mg PO DAILY PM 05/21/20 05/21/20 chlordiazePOXIDE [Librium] 25 mg PO DAILY #4 capsule 05/21/20 - Allergies Allergies/Adverse Reactions: Allergies Allergy/AdvReac Type Severity Reaction Status Date / Time cephalexin Allergy Unknown Verified 05/21/20 07:01 - Social History Does the pt smoke?: Yes Smoking Status: Current every day smoker Does the pt drink ETOH?: Yes ETOH Use: Beer Does the pt have substance abuse?: No - Immunizations Immunizations are current?: Yes - POLST Patient has POLST: No PD ED PE NORMAL - Vitals Vital signs reviewed: Yes (hypertensive ) - General General: Alert and oriented X 3, No acute distress, Well developed/nourished - HEENT HEENT: Atraumatic, PERRL, EOMI, Ears normal, Other (dry mucous membranes) - Neck Neck: Supple, no meningeal sign, No bony TTP - Cardiac Cardiac: RRR, No murmur - Respiratory Respiratory: No respiratory distress, Clear bilaterally - Abdomen Abdomen: Normal bowel sounds, Soft, Non tender, Non distended, No organomegaly - Back Back: No CVA TTP, No spinal TTP - Derm Derm: Normal color, Warm and dry, No rash - Neuro Neuro: Alert and oriented X 3, shoe treer 2-12 intact, No motor deficit, No sensory deficit, Other (speech is mildly pressurized) Eye Opening: Spontaneous Motor: Obeys Commands Verbal: Oriented GCS Score: 15 - Psych Psych: Normal mood, Normal affect Results - Vitals Vitals: Vital Signs - 24 hr 05/21/20 05/21/20 05/21/20 07:01 07:20 08:31 Temperature 36.7 C 36.5 C Heart Rate 95 80 73 Respiratory 20 14 24 Rate Blood Pressure 163/96 H 161/85 H 154/91 H O2 Saturation 98 100 24 L 05/21/20 05/21/20 10:12 13:59 Temperature 37.4 C Heart Rate 70 84 Respiratory 17 16 Rate Blood Pressure 146/90 H 157/93 H O2 Saturation 99 97 Oxygen O2 Source Room air - EKG (time done) 0721 Rate: Rate (enter#) (79) Rhythm: NSR, LAE Intervals: RBBB (incomplete) Compare to prior EKG: Unchanged from prior EKG (SPT 12-24-2019) Computer interpretation: Agree with computer - Labs Labs: Laboratory Tests 05/21/20 05/21/20 05/21/20 07:45 07:48 07:48 WBC 7.7 RBC 5.59 Hgb 17.1 Hct 50.8 MCV 90.9 MCH 30.6 MCHC 33.7 RDW 13.1 Plt Count 308 MPV 9.9 Neut # (Auto) 4.6 Lymph # (Auto) 2.0 [place] # (Auto) 0.7 Eos # (Auto) 0.3 Baso # (Auto) 0.0 Absolute Nucleated RBC 0.00 Nucleated RBC % 0.0 Sodium 140 Potassium 4.1 Chloride 104 Carbon Dioxide 27 Anion Gap 9.0 BUN 16 Creatinine 1.2 Estimated GFR (MDRD) 72 L Glucose 99 Calcium 9.3 Total Bilirubin 1.0 AST 23 ALT 34 Alkaline Phosphatase 58 Troponin I High Sens Total Protein 7.7 Albumin 4.3 Globulin 3.4 Albumin/Globulin Ratio 1.3 Lipase 24 TSH Urine Color YELLOW Urine Clarity CLEAR Urine pH 6.5 Ur Specific [place] 1.025 Urine Protein NEGATIVE Urine Glucose (UA) NEGATIVE Urine Ketones NEGATIVE Urine Occult Blood NEGATIVE Urine Nitrite NEGATIVE Urine Bilirubin NEGATIVE Urine Urobilinogen 0.2 (NORMAL) Ur Leukocyte Esterase NEGATIVE Ur Microscopic Review NOT INDICATED Urine Culture Comments NOT INDICATED Salicylates < 6.0 Urine Opiates Screen NEGATIVE Ur Oxycodone Screen NEGATIVE Urine Methadone Screen NEGATIVE Ur Propoxyphene Screen NEGATIVE Acetaminophen < 10 L Ur Barbiturates Screen NEGATIVE Ur Tricyclics Screen NEGATIVE Ur Phencyclidine Scrn NEGATIVE Ur Amphetamine Screen NEGATIVE U Methamphetamines Scrn NEGATIVE U Benzodiazepines Scrn POSITIVE H Urine Cocaine Screen NEGATIVE U Cannabinoids Screen POSITIVE H Ethyl Alcohol < 5.0 05/21/20 05/21/20 07:48 07:48 WBC RBC Hgb Hct MCV MCH MCHC RDW Plt Count MPV Neut # (Auto) Lymph # (Auto) [place] # (Auto) Eos # (Auto) Baso # (Auto) Absolute Nucleated RBC Nucleated RBC % Sodium Potassium Chloride Carbon Dioxide Anion Gap BUN Creatinine Estimated GFR (MDRD) Glucose Calcium Total Bilirubin AST ALT Alkaline Phosphatase Troponin I High Sens 2.8 Total Protein Albumin Globulin Albumin/Globulin Ratio Lipase TSH 1.74 Urine Color Urine Clarity Urine pH Ur Specific [place] Urine Protein Urine Glucose (UA) Urine Ketones Urine Occult Blood Urine Nitrite Urine Bilirubin Urine Urobilinogen Ur Leukocyte Esterase Ur Microscopic Review Urine Culture Comments Salicylates Urine Opiates Screen Ur Oxycodone Screen Urine Methadone Screen Ur Propoxyphene Screen Acetaminophen Ur Barbiturates Screen Ur Tricyclics Screen Ur Phencyclidine Scrn Ur Amphetamine Screen U Methamphetamines Scrn U Benzodiazepines Scrn Urine Cocaine Screen U Cannabinoids Screen Ethyl Alcohol - Rads (name of study) chest Radiology: Prelim report reviewed (Impression: No acute cardiopulmonary pathology.), EMP read indepedently, See rad report PD MEDICAL DECISION MAKING - ED course Complexity details: reviewed old records, reviewed results, re-evaluated p atient, considered differential, d/w patient, d/w family ED course: 30-year-old male with a history of schizophrenia has had worsening of his schizophrenia with amphetamine use previously and he has recently lost his job and is not sleeping well and has had an increase in his symptomatology. So much so that his mother is hopeful that he will be hospitalized for medication adjustments as medication adjustments being done as an outpatient have been ineffective. His PAC team is able to adjust his visit dates and he is given a script for librium which apparently has helped quite a bit. Departure - Departure Disposition: 01 Home, Self Care Clinical Impression: Schizophrenia Qualifiers: Schizophrenia type: paranoid schizophrenia Qualified Code(s): F20.0 - Paranoid schizophrenia Condition: Stable Instructions: ED Paranoid Schizophrenia, ED Schizophrenia General Follow-Up: Zahraa Kasper ARNP [Physician No Access] - Prescriptions: chlordiazePOXIDE [Librium] 25 mg PO DAILY #4 capsule Discharge Date/Time: 05/21/20 14:29
--- NOTE | 2020-05-21 07:52 | XRAY Report ---
PROCEDURE: Chest 1 View X-Ray INDICATIONS: chest pain TECHNIQUE: One view of the chest was acquired. COMPARISON: 12/24/2019 FINDINGS: Surgical changes and devices: None. Lungs and pleura: No pleural effusions or pneumothorax. Lungs are clear. Mediastinum: Mediastinal contours appear normal. Heart size is normal. Bones and chest wall: No suspicious bony lesions. Overlying soft tissues appear unremarkable. IMPRESSION: No acute cardiopulmonary pathology. Reviewed by: Holland Zamora MD on 05/21/2020 7:51 AM [facility] Approved by: Holland Zamora MD on 05/21/2020 7:51 AM [facility] Station ID: [id number]
[2020-05-21 07:55] LABS: BILIRUBIN,URINE NEGATIVE (NEGATIVE); GLUCOSE, URINE (UA) NEGATIVE (NEGATIVE); KETONES,URINE (UA) NEGATIVE (NEGATIVE); LEUKOCYTE ESTERASE, URINE NEGATIVE (NEGATIVE); NITRITE,URINE NEGATIVE (NEGATIVE); OCCULT BLOOD,URINE NEGATIVE (NEGATIVE); PH,URINE 6.5 PH (5.0-7.5); PROTEIN,URINE NEGATIVE (NEGATIVE); UROBILINOGEN,URINE 0.2 (NORMAL) E.U./dL (NORMAL)
[2020-05-21 08:02] LABS: CLARITY,URINE CLEAR (CLEAR)
[2020-05-21 08:06] LABS: AMPHETAMINE SCREEN,URINE NEGATIVE (NEGATIVE); BENZODIAZEPINES SCREEN, URINE POSITIVE (NEGATIVE); COCAINE SCREEN URINE NEGATIVE (NEGATIVE); METHADONE SCREEN, URINE NEGATIVE (NEGATIVE); METHAMPHETAMINES SCREEN, URINE NEGATIVE (NEGATIVE); OPIATE SCREEN, URINE NEGATIVE (NEGATIVE); OXYCODONE SCREEN, URINE NEGATIVE (NEGATIVE); PROPOXYPHENE SCREEN, URINE NEGATIVE (NEGATIVE); TRICYCLIC ANTIDEPRESSANT,URINE NEGATIVE (NEGATIVE)
[2020-05-21 08:08] LABS: ACETAMINOPHEN < 10 ug/mL (10-30); ALBUMIN 4.3 g/dL (3.2-5.5); ALBUMIN/GLOBULIN RATIO 1.3 (1.0-2.2); ALKALINE PHOSPHATASE 58 IU/L (42-121); ALT ALANINE AMINOTRANSFERASE 34 IU/L (10-60); AST ASPARTATE AMINOTRANSFERASE 23 IU/L (10-42); BUN - BLOOD UREA NITROGEN 16 mg/dL (6-20); CALCIUM 9.3 mg/dL (8.5-10.3); CARBON DIOXIDE - CO2 27 mmol/L (21-32); CHLORIDE 104 mmol/L (101-111); CREATININE 1.2 mg/dL (0.6-1.2); GLUCOSE 99 mg/dL (70-100); LIPASE 24 U/L (22-51); SALICYLATE < 6.0 mg/dL; TOTAL PROTEIN 7.7 g/dL (6.7-8.2)
[2020-05-21 08:27] LABS: BASOPHILS % (AUTO) 0.5 %; EOSINOPHILS # (AUTO) 0.3 10^3/uL (0.0-0.7); EOSINOPHILS % (AUTO) 4.4 %; HGB - HEMOGLOBIN 17.1 g/dL (14.0-18.0); MEAN CORPUSCULAR HEMOGLOBIN 30.6 pg (27.0-31.0); MEAN CORPUSCULAR HGB CONC 33.7 g/dL (32.0-36.0); MEAN CORPUSCULAR VOLUME 90.9 fL (80.0-94.0); MEAN PLATELET VOLUME 9.9 fL (7.4-11.4); MONOCYTES # (AUTO) 0.7 10^3/uL (0.0-1.0); MONOCYTES % (AUTO) 9.6 %; NEUTROPHILS # (AUTO) 4.6 10^3/uL (1.5-6.6); NEUTROPHILS % (AUTO) 59.2 %; PLT - PLATELET COUNT 308 10^3/uL (130-450); RED BLOOD COUNT 5.59 10^6/uL (4.70-6.10); RED CELL DISTRIBUTION WIDTH 13.1 % (12.0-15.0); WHITE BLOOD COUNT 7.7 x10^3/uL (4.8-10.8)
[2020-05-21] MEDS ORDERED: LORazepam 1 MG TABLET PO STA (10:15)
[2020-05-21 14:02] VITALS: BP 157/93
== END 2020-05-21 14:29 | disposition home or self-care (01) ==
LOC: ED 06:56
DX: F20.0 Paranoid schizophrenia (principal); F31.9 Bipolar disorder, unspecified; G47.00 Insomnia, unspecified; R05 Cough; R07.9 Chest pain, unspecified; I45.2 Bifascicular block; F17.200 Nicotine dependence, unspecified, uncomplicated
CPT/HCPCS: 36415; 71045; 80053; 81003; 83690; 84443; 84484; 85025; 93005; 99284; J8499; 80306; 80307; 80320; 80329; 81001; 87086

== ENCOUNTER 2020-08-14 14:53 | Emergency (ER) | payer MEDICARE, MEDICAID ==
[2020-08-14] MEDS ORDERED: LORazepam 2 MG/ML VIAL IM STA (15:30)
[2020-08-14] MEDS ORDERED: KETOROLAC 60 MG/2 ML VIAL IM STA (15:30)
--- NOTE | 2020-08-14 15:34 | ED Physician Documentation ---
PD HPI HEADACHE - Stated complaint Stated Complaint: MIGRAINE, METALLIC TASTE IN MOUTH - Chief complaint Chief Complaint: Neuro - History obtained from History obtained from: Patient - History of Present Illness Timing - onset: Today Timing - details: Gradual onset Pain level max: 7 Pain level now: 7 Location: Front Quality: Throbbing, Aching. No: Thunderclap Associated symptoms: Nausea. No: Fever, Stiff neck, Vomiting, Weakness, Numbness, Syncope, Seizure, Eye pain Improved by: Rest Worsened by: Light, Noise Contributing factors: No: Anticoagulated, Possible carbon monoxide, Hypertension, Recent illness, Trauma Recently seen: Not recently seen - Additional information Additional information: 30-year-old male presents to the emergency department with a headache today. States that it started about 4 AM and is continued throughout the day. He took Tylenol this morning without relief. Worse with light and sound. Nothing makes it better. Gradual onset, rated as a 7 out of 10. Has had similar episodes every 2 to 3 months over the past year. Has a history of anxiety as well. He states he is either taking Abilify or olanzapine, he is not sure which one. He states that he had a metallic taste in his mouth earlier today as well. Review of Systems Ten Systems: 10 systems reviewed and negative Constitutional: denies: Fever, Chills Eyes: denies: Loss of vision, Decreased vision Ears: denies: Ear pain Nose: denies: Rhinorrhea / runny nose, Congestion Throat: denies: Sore throat Cardiac: denies: Chest pain / pressure, Palpitations Respiratory: denies: Dyspnea, Cough GI: denies: Vomiting, Diarrhea Skin: denies: Rash Musculoskeletal: denies: Neck pain, Back pain Neurologic: denies: Focal weakness, Numbness, Syncope, Seizure, Confused, Head injury, LOC Psychiatric: reports: Anxiety PD PAST MEDICAL HISTORY - Past Medical History Cardiovascular: None Respiratory: Asthma, Pneumonia Neuro: None Endocrine/Autoimmune: None GI: None : None HEENT: None Psych: Depression, Anxiety, Bipolar disorder, Schizophrenia Musculoskeletal: None Derm: None - Past Surgical History Past Surgical History: No - Present Medications Home Medications: Ambulatory Orders Medication Instructions Recorded Confirmed Aripiprazole [Abilify] 15 mg PO DAILY PM 05/21/20 08/14/20 - Allergies Allergies/Adverse Reactions: Allergies Allergy/AdvReac Type Severity Reaction Status Date / Time cephalexin Allergy Unknown Verified 08/14/20 14:58 - Social History Does the pt smoke?: Yes Smoking Status: Current every day smoker Does the pt drink ETOH?: Yes Does the pt have substance abuse?: No - Immunizations Immunizations are current?: Yes - POLST Patient has POLST: No PD ED PE NORMAL - Vitals Vital signs reviewed: Yes - General General: Alert and oriented X 3, Other (appears anxious) - HEENT HEENT: PERRL, Moist mucous membranes - Neck Neck: Supple, no meningeal sign - Cardiac Cardiac: RRR, Strong equal pulses - Respiratory Respiratory: No respiratory distress, Clear bilaterally - Abdomen Abdomen: Soft, Non tender, Non distended - Back Back: No CVA TTP, No spinal TTP - Derm Derm: Warm and dry - Extremities Extremities: No edema, No calf tenderness / cord - Neuro Neuro: Alert and oriented X 3, 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 Headache resolved. Feels much better. Patient request to go home at this time. No evidence of subarachnoid hemorrhage, tumor. Patient counseled regarding signs and symptoms for which I believe and urgent re-evaluation would be necessary. Patient with good understanding of and agreement to plan and is comfortable going home at this time This document was made in part using voice recognition software. While efforts are made to proofread this document, sound alike and grammatical errors may occur. Departure - Departure Disposition: 01 Home, Self Care Clinical Impression: Headache Qualifiers: Headache type: unspecified Headache chronicity pattern: acute headache Intractability: not intractable Qualified Code(s): R51.9 - Headache, unspecified Condition: Good Instructions: ED Cephalgia Unspecified Follow-Up: your,doctor in 1 week [Other] Comments: Go home and rest today. Return if you worsen. Do not drive or operate heavy machinery for the rest of the day. Follow-up with your doctor for further care. Discharge Date/Time: 08/14/20 16:27
[2020-08-14 16:25] VITALS: BP 174/77
== END 2020-08-14 16:27 | disposition home or self-care (01) ==
LOC: ED 14:53
DX: R51.9 Headache, unspecified (principal); R11.0 Nausea; F41.9 Anxiety disorder, unspecified; F17.200 Nicotine dependence, unspecified, uncomplicated
CPT/HCPCS: 96372; 99283; J2060

== ENCOUNTER 2022-04-09 11:31 | Emergency (ER) | payer MEDICARE, MEDICAID ==
[2022-04-09] MEDS ORDERED: ALPRAZolam 0.25 MG TABLET PO STA (14:09)
--- NOTE | 2022-04-09 14:20 | ED Physician Documentation ---
PD HPI MHE - Stated complaint Stated Complaint: ANXIETY/PANIC ATTACK - Chief complaint Chief Complaint: MHE - History obtained from History obtained from: Patient - History of Present Illness Primary symptom: Anxiety. No: Suicidal ideation, Suicide attempt, Self harm - cut, Homicidal ideation Timing - onset: How many days ago (several days to a week of worsening anxiety and insomnia. Feeling more anxious due to that.) Contributing factors: Out of meds (had had Rx for diazepam it looks like, from psychologist. Had been on buproprion and quietipine at least past several months per Rx inquiry. Changed to Olanzepine/diazepam end of Jan. Had 2 Rxs for 15 days valium. He states out now, which is appropriate timing. unclear if not refilled on purpose.). No: Substance abuse - ETOH, Substance abuse - drugs Similar symptoms before: Diagnosis (history of anxiety) Recently seen: Clinic Review of Systems Constitutional: denies: Fever Nose: denies: Rhinorrhea / runny nose, Congestion Throat: denies: Sore throat Respiratory: denies: Cough GI: denies: Vomiting, Diarrhea Neurologic: denies: Altered mental status, Headache, Head injury Psychiatric: reports: Anxiety, Insomnia. denies: Depressed, Suicidal, Homicidal PD PAST MEDICAL HISTORY - Past Medical History Past Medical History: Yes Cardiovascular: None Respiratory: Asthma, Pneumonia Neuro: None Endocrine/Autoimmune: None GI: None : None HEENT: None Psych: Depression, Anxiety, Bipolar disorder, Schizophrenia Musculoskeletal: None Derm: None - Past Surgical History Past Surgical History: No - Present Medications Home Medications: Ambulatory Orders Medication Instructions Recorded Confirmed ALPRAZolam [Xanax] 0.25 mg PO BID PRN #20 tablet 04/09/22 - Allergies Allergies/Adverse Reactions: Allergies Allergy/AdvReac Type Severity Reaction Status Date / Time cephalexin Allergy Unknown Verified 04/09/22 11:46 - Social History Does the pt smoke?: Yes Smoking Status: Current every day smoker Does the pt drink ETOH?: No Does the pt have substance abuse?: No - Immunizations Immunizations are current?: Yes - POLST Patient has POLST: No PD ED PE NORMAL - Vitals Vital signs reviewed: Yes - General General: Alert and oriented X 3, No acute distress, Well developed/nourished - Cardiac Cardiac: RRR, No murmur - Respiratory Respiratory: Clear bilaterally - Derm Derm: Normal color, Warm and dry - Neuro Neuro: Alert and oriented X 3, No motor deficit, Normal speech - Psych Psych: No: Normal affect (anxious but pleasant and conversant.) Results - Vitals Vitals: Vital Signs - 24 hr 04/09/22 04/09/22 11:43 14:40 Temperature 36.6 C 36.7 C Heart Rate 85 73 Respiratory 20 20 Rate Blood Pressure 152/108 H 154/97 H O2 Saturation 100 100 Oxygen O2 Source Room air PD MEDICAL DECISION MAKING - ED course Complexity details: reviewed old records (prior visits and prescription inquiry; no LAILA.), d/w patient Departure - Departure Disposition: Home, Self Care Clinical Impression: Anxiety Condition: Stable Record reviewed to determine appropriate education?: Yes Instructions: ED Panic Attack Prescriptions: ALPRAZolam [Xanax] 0.25 mg PO BID PRN #20 tablet PRN Reason: Anxiety Comments: Follow-up with your psychologist, Eleonora Tavarez, regarding further medication changes. I can provide a short-term prescription for the Xanax you had been on previously. You said the diazepam/Valium affected your mood. This is intended for short term until other medication changes can become effective. It would be up to your psychiatric provider to decide on further medications or changes. We will not be renewing or prescribing further benzodiazepines regularly out of the ER. I will do it at this time. I sent this prescription to [facility] pharmacy at your direction. Discharge Date/Time: 04/09/22 14:43
[2022-04-09 14:40] VITALS: BP 154/97
== END 2022-04-09 14:43 | disposition home or self-care (01) ==
LOC: ED 11:31
DX: F41.9 Anxiety disorder, unspecified (principal); F17.200 Nicotine dependence, unspecified, uncomplicated
CPT/HCPCS: 99282; 99283; A9270

== ENCOUNTER 2022-04-27 15:24 | Emergency (ER) | payer MEDICARE, MEDICAID ==
[2022-04-27 15:42] VITALS: BP 180/90
--- NOTE | 2022-04-27 17:22 | ED Physician Documentation ---
PD HPI LOWER EXT INJURY - Stated complaint Stated Complaint: LEG SWELLING - Chief complaint Chief Complaint: Ext Problem - History obtained from History obtained from: Patient - History of Present Illness PD HPI LOW EXT INJURY LOCATION: Right, Left, Ankle, Foot Type of injury: Other (He denies prolonged walking or conversely immobilization. Denies cold injury to the feet. He has noted several days of swelling around the ankles and feet and now the lower legs as well. No swelling of hands and no rash.). No: Fall, Twist Where injury occurred: Home Timing - onset: How many days ago (few days of progressive swelling both feet/ankles and now lower legs.) Timing - duration: Days Timing - details: Gradual onset, Still present Worsened by: Palpating Associated symptoms: Swelling. No: Weakness, Numbness, Discolored Contributing factors: Other (denies recent change in meds, cold exposure of the feet, prolonged sitting with legs down.) Similar symptoms before: Has not had sx before Recently seen: Not recently seen Review of Systems Constitutional: denies: Fever Nose: denies: Rhinorrhea / runny nose, Congestion Throat: denies: Sore throat Cardiac: reports: Pedal edema, Calf pain. denies: Chest pain / pressure Respiratory: denies: Cough GI: denies: Abdominal Pain, Vomiting, Diarrhea, Bloody / black stool : denies: Dysuria Skin: denies: Rash Neurologic: denies: Generalized weakness, Focal weakness PD PAST MEDICAL HISTORY - Past Medical History Cardiovascular: None Respiratory: Asthma, Pneumonia Neuro: None Endocrine/Autoimmune: None GI: None : None HEENT: None Psych: Depression, Anxiety, Bipolar disorder, Schizophrenia Musculoskeletal: None Derm: None - Past Surgical History Past Surgical History: No - Present Medications Home Medications: Ambulatory Orders Medication Instructions Recorded Confirmed OLANZapine [Zyprexa Zydis] 15 mg PO QPM 04/27/22 04/27/22 - Allergies Allergies/Adverse Reactions: Allergies Allergy/AdvReac Type Severity Reaction Status Date / Time cephalexin Allergy Unknown Verified 04/27/22 19:35 - Social History Does the pt smoke?: Yes Smoking Status: Current every day smoker Does the pt drink ETOH?: No Does the pt have substance abuse?: No - Immunizations Immunizations are current?: Yes - POLST Patient has POLST: No PD ED PE NORMAL - Vitals Vital signs reviewed: Yes - General General: Alert and oriented X 3, Well developed/nourished, Other (anxious about the feet swelling. No pain nor distress. ) - Neck Neck: Supple, no meningeal sign, No JVD - Cardiac Cardiac: RRR, No murmur - Respiratory Respiratory: Clear bilaterally - Abdomen Abdomen: Soft, Non tender - Back Back: No CVA TTP - Derm Derm: Normal color, Warm and dry, Other (no skin breakdown, sores, infectious signs on feet/toes. ) - Extremities Extremities: Other (there is edema/swelling of both feet/ankles/and distal lower legs. No rash nor sores. Good color and cap refill in toes both feet. Normal sensation. ). No: No calf tenderness / cord (some calf tenderness without tightness.) - Neuro Neuro: Alert and oriented X 3, No motor deficit, No sensory deficit, Normal speech - Psych Psych: No: Normal mood (anxious about the swelling), Normal affect (somewhat flat otherwise.) Results - Vitals Vitals: Vital Signs - 24 hr 04/27/22 15:39 Temperature 37.2 C Heart Rate 78 Respiratory 19 Rate Blood Pressure 180/90 H O2 Saturation 99 Oxygen O2 Source Room air - Labs Labs: Laboratory Tests 04/27/22 04/27/22 04/27/22 17:46 17:46 17:46 WBC 10.6 RBC 5.52 Hgb 16.1 Hct 49.5 MCV 89.7 MCH 29.2 MCHC 32.5 RDW 13.5 Plt Count 344 MPV 9.9 Neut # (Auto) 5.4 Lymph # (Auto) 3.3 Deuel # (Auto) 1.2 H Eos # (Auto) 0.6 Baso # (Auto) 0.1 Absolute Nucleated RBC 0.00 Nucleated RBC % 0.0 Sodium 139 Potassium 4.1 Chloride 103 Carbon Dioxide 27 Anion Gap 9.0 BUN 17 Creatinine 1.0 Estimated GFR (MDRD) 88 L Glucose 100 Calcium 9.7 Magnesium 1.8 Total Bilirubin 0.5 AST 47 H ALT 132 H Alkaline Phosphatase 62 B-Natriuretic Peptide < 5 L Total Protein 7.8 Albumin 3.8 Globulin 4.0 Albumin/Globulin Ratio 1.0 Lipase 30 Urine Color Urine Clarity Urine pH Ur Specific Crum Urine Protein Urine Glucose (UA) Urine Ketones Urine Occult Blood Urine Nitrite Urine Bilirubin Urine Urobilinogen Ur Leukocyte Esterase Ur Microscopic Review Urine Culture Comments Urine Opiates Screen Ur Oxycodone Screen Urine Methadone Screen Ur Propoxyphene Screen Ur Barbiturates Screen Ur Tricyclics Screen Ur Phencyclidine Scrn Ur Amphetamine Screen U Methamphetamines Scrn U Benzodiazepines Scrn Urine Cocaine Screen U Cannabinoids Screen 04/27/22 04/27/22 17:46 17:46 WBC RBC Hgb Hct MCV MCH MCHC RDW Plt Count MPV Neut # (Auto) Lymph # (Auto) Deuel # (Auto) Eos # (Auto) Baso # (Auto) Absolute Nucleated RBC Nucleated RBC % Sodium Potassium Chloride Carbon Dioxide Anion Gap BUN Creatinine Estimated GFR (MDRD) Glucose Calcium Magnesium Total Bilirubin AST ALT Alkaline Phosphatase B-Natriuretic Peptide Total Protein Albumin Globulin Albumin/Globulin Ratio Lipase Urine Color YELLOW Urine Clarity CLEAR Urine pH 6.0 Ur Specific Crum 1.025 Urine Protein NEGATIVE Urine Glucose (UA) NEGATIVE Urine Ketones NEGATIVE Urine Occult Blood NEGATIVE Urine Nitrite NEGATIVE Urine Bilirubin NEGATIVE Urine Urobilinogen 0.2 (NORMAL) Ur Leukocyte Esterase NEGATIVE Ur Microscopic Review NOT INDICATED Urine Culture Comments NOT INDICATED Urine Opiates Screen NEGATIVE Ur Oxycodone Screen NEGATIVE Urine Methadone Screen NEGATIVE Ur Propoxyphene Screen NEGATIVE Ur Barbiturates Screen NEGATIVE Ur Tricyclics Screen NEGATIVE Ur Phencyclidine Scrn NEGATIVE Ur Amphetamine Screen NEGATIVE U Methamphetamines Scrn NEGATIVE U Benzodiazepines Scrn POSITIVE H Urine Cocaine Screen NEGATIVE U Cannabinoids Screen NEGATIVE PD MEDICAL DECISION MAKING - ED course Complexity details: reviewed results, re-evaluated patient, considered differential (he does have some edema in both lower legs/ankles/feet. Denies prolonged dependent position nor cold injury. Can check duplex bilat, lytes/renal fxn, and UA for protein. ), d/w patient Departure - Departure Clinical Impression: Bilateral lower extremity edema Condition: Stable Record reviewed to determine appropriate education?: Yes Instructions: ED Edema Legs Bilateral Comments: I believe the swelling in your feet is likely a local effect from being in in a down position or such. No signs of skin infection as a cause. Your ultrasound was normal so no signs of blood clots. Your blood test and urine test do not show any signs of kidney failure nor excess protein loss as other potential causes for edema. I therefore would suggest just elevating your legs periodically through the day and using some compressive socks to help reduce swelling. Tylenol or ibuprofen as needed for pains.
[2022-04-27 17:52] LABS: BASOPHILS # (AUTO) 0.1 10^3/uL (0.0-0.1); BASOPHILS % (AUTO) 0.8 %; EOSINOPHILS # (AUTO) 0.6 10^3/uL (0.0-0.7); EOSINOPHILS % (AUTO) 5.5 %; HCT - HEMATOCRIT 49.5 % (42.0-52.0); HGB - HEMOGLOBIN 16.1 g/dL (14.0-18.0); LYMPHOCYTES # (AUTO) 3.3 10^3/uL (1.5-3.5); LYMPHOCYTES % (AUTO) 31.1 %; MEAN CORPUSCULAR HEMOGLOBIN 29.2 pg (27.0-31.0); MEAN CORPUSCULAR HGB CONC 32.5 g/dL (32.0-36.0); MEAN CORPUSCULAR VOLUME 89.7 fL (80.0-94.0); MEAN PLATELET VOLUME 9.9 fL (7.4-11.4); MONOCYTES # (AUTO) 1.2 10^3/uL (0.0-1.0); MONOCYTES % (AUTO) 11.4 %; NEUTROPHILS # (AUTO) 5.4 10^3/uL (1.5-6.6); NEUTROPHILS % (AUTO) 50.4 %; PLT - PLATELET COUNT 344 10^3/uL (130-450); RED BLOOD COUNT 5.52 10^6/uL (4.70-6.10); RED CELL DISTRIBUTION WIDTH 13.5 % (12.0-15.0); WHITE BLOOD COUNT 10.6 x10^3/uL (4.8-10.8)
[2022-04-27 18:05] LABS: ALBUMIN 3.8 g/dL (3.2-5.5); BILIRUBIN,TOTAL 0.5 mg/dL (0.2-1.0); CALCIUM 9.7 mg/dL (8.5-10.3); MAGNESIUM 1.8 mg/dL (1.7-2.8); POTASSIUM 4.1 mmol/L (3.5-5.0); TOTAL PROTEIN 7.8 g/dL (6.7-8.2)
[2022-04-27 18:14] LABS: BILIRUBIN,URINE NEGATIVE (NEGATIVE); GLUCOSE, URINE (UA) NEGATIVE (NEGATIVE); KETONES,URINE (UA) NEGATIVE (NEGATIVE); LEUKOCYTE ESTERASE, URINE NEGATIVE (NEGATIVE); NITRITE,URINE NEGATIVE (NEGATIVE); OCCULT BLOOD,URINE NEGATIVE (NEGATIVE); PROTEIN,URINE NEGATIVE (NEGATIVE); UROBILINOGEN,URINE 0.2 (NORMAL) E.U./dL (NORMAL)
[2022-04-27 18:29] LABS: CLARITY,URINE CLEAR (CLEAR)
[2022-04-27 18:49] LABS: MUDS CUTOFF CONCENTRATIONS CUTOFF CONC BELOW:
[2022-04-27] MEDS: NAPROXEN 250 MG TABLET PO STA (18:50)
[2022-04-27 19:01] LABS: AMPHETAMINE SCREEN,URINE NEGATIVE (NEGATIVE); BARBITURATE SCREEN,UR NEGATIVE (NEGATIVE); BENZODIAZEPINES SCREEN, URINE POSITIVE (NEGATIVE); COCAINE SCREEN URINE NEGATIVE (NEGATIVE); METHADONE SCREEN, URINE NEGATIVE (NEGATIVE); METHAMPHETAMINES SCREEN, URINE NEGATIVE (NEGATIVE); OPIATE SCREEN, URINE NEGATIVE (NEGATIVE); OXYCODONE SCREEN, URINE NEGATIVE (NEGATIVE); PROPOXYPHENE SCREEN, URINE NEGATIVE (NEGATIVE); THC CANNABINOID SCREEN, URINE NEGATIVE (NEGATIVE); TRICYCLIC ANTIDEPRESSANT,URINE NEGATIVE (NEGATIVE)
--- NOTE | 2022-04-27 19:40 | Ultrasound Report ---
PROCEDURE: Duplex Ext Veins Bilateral INDICATIONS: Leeann James TECHNIQUE: Real-time imaging, as well as color and pulse Doppler interrogation, were performed of the deep veins of both legs from the inguinal ligament to the popliteal fossa. COMPARISON: None FINDINGS: The deep veins are normally compressible, and free of intraluminal thrombus. Color and pu lse Doppler demonstrate normal phasic intravascular flow. There is normal augmentation response to d istal compression. Small fluid collections bilaterally lateral to the knee. IMPRESSION: Limited examination due to patient body habitus without evidence of DVT bilaterally. Calf veins in pa rticular are not well seen due to swelling. Reviewed by: Jose Lozoya MD on 04/27/2022 7:38 PM PST Approved by: Jose Lozoya MD on 04/27/2022 7:38 PM PST Station ID: [id number]
--- NOTE | 2022-04-27 21:41 | ED Physician Documentation ---
ED Addendum - Addendum Addendum: 04/27/22 21:40 Patient was signed out to me awaiting ultrasound testing. Ultrasound shows no evidence of DVT. No significant lab abnormalities. Appears to be dependent edema. We will have him follow-up with his doctor for further care. Patient counseled regarding signs and symptoms for which I believe and urgent re- evaluation would be necessary. Patient with good understanding of and agreement to plan and is comfortable going home at this time This document was made in part using voice recognition software. While efforts are made to proofread this document, sound alike and grammatical errors may occur. Departure - Departure Disposition: Home, Self Care Clinical Impression: Bilateral lower extremity edema Condition: Good Instructions: ED Edema Legs Bilateral Follow-Up: Your,doctor in 1 week [Other] Comments: I believe the swelling in your feet is likely a local effect from being in in a down position or such. No signs of skin infection as a cause. Your ultrasound was normal so no signs of blood clots. Your blood test and urine test do not show any signs of kidney failure nor excess protein loss as other potential causes for edema. I therefore would suggest just elevating your legs periodically through the day and using some compressive socks to help reduce swelling. Tylenol or ibuprofen as needed for pains.
== END 2022-04-27 21:45 | disposition home or self-care (01) ==
LOC: ED 15:24
DX: R60.0 Localized edema (principal); F17.200 Nicotine dependence, unspecified, uncomplicated
CPT/HCPCS: 36415; 80053; 80306; 81003; 83690; 83735; 83880; 85025; 93970; 99282; 99284; A9270; 81001; 87086

== ENCOUNTER 2023-04-30 15:30 | Emergency (ER) | payer MEDICARE, MEDICAID ==
[2023-04-30] MEDS ORDERED: chlordiazePOXIDE 25 MG CAPSULE PO STA (15:55)
--- NOTE | 2023-04-30 15:58 | ED Physician Documentation ---
History of Present Illness - Stated complaint Stated Complaint: WITHDRAWAL/SHAKY/NAUSEA - Chief complaint Chief Complaint: General - History obtained from History obtained from: Patient - History of Present Illness Timing: How many days ago Pain level max: 0 Pain level now: 0 - Additonal information Additional information: Patient is a 33-year-old male who presents to the emergency department stating that his last drink of alcohol was 3 days ago. He states he is feeling shaky and like he is going through withdrawal. He does not want to go to detox. Has never had seizures. Review of Systems Constitutional: denies: Fever, Chills, Myalgias Respiratory: denies: Cough GI: denies: Nausea, Vomiting, Diarrhea Skin: denies: Rash Musculoskeletal: denies: Neck pain, Back pain Neurologic: denies: Headache PD PAST MEDICAL HISTORY - Past Medical History Past Medical History: Yes Cardiovascular: None Respiratory: Asthma, Pneumonia Neuro: None Endocrine/Autoimmune: None GI: None : None HEENT: None Psych: Depression, Anxiety, Bipolar disorder, Schizophrenia Musculoskeletal: None Derm: None - Past Surgical History Past Surgical History: No - Present Medications Home Medications: Ambulatory Orders Medication Instructions Recorded Confirmed OLANZapine [Zyprexa] 20 mg PO DAILY 04/30/23 04/30/23 Quetiapine Fumarate [Seroquel] 50 mg PO DAILY 04/30/23 04/30/23 buPROPion HCL [Bupropion Xl] 150 mg PO QPM 04/30/23 04/30/23 chlordiazePOXIDE [Librium] 25 mg PO Q6H PRN #10 cap 04/30/23 - Allergies Allergies/Adverse Reactions: Allergies Allergy/AdvReac Type Severity Reaction Status Date / Time cephalexin Allergy Unknown Verified 04/30/23 15:35 - Social History Does the pt smoke?: Yes Smoking Status: Current every day smoker Does the pt drink ETOH?: No Does the pt have substance abuse?: No - Immunizations Immunizations are current?: Yes - POLST Patient has POLST: No PD ED PE NORMAL - Vitals Vital signs reviewed: Yes - General General: Alert and oriented X 3, No acute distress - HEENT HEENT: Atraumatic, PERRL, Moist mucous membranes - Neck Neck: Supple, no meningeal sign, No bony TTP - Cardiac Cardiac: RRR - Respiratory Respiratory: No respiratory distress, Clear bilaterally - Abdomen Abdomen: Soft, Non tender, Non distended - Back Back: No CVA TTP, No spinal TTP - Derm Derm: Warm and dry - Extremities Extremities: No edema, No calf tenderness / cord - Neuro Neuro: Alert and oriented X 3, 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, No motor deficit, No sensory deficit, Normal speech Eye Opening: Spontaneous Motor: Obeys Commands Verbal: Oriented GCS Score: 15 - Psych Psych: Normal mood, Normal affect Results - Vitals Vitals: Vital Signs - 24 hr 04/30/23 04/30/23 15:35 16:55 Temperature 36.5 C Heart Rate 100 79 Respiratory 18 16 Rate Blood Pressure 160/90 H 140/79 H O2 Saturation 97 100 Oxygen O2 Source Room air - Labs Labs: Laboratory Tests 04/30/23 04/30/23 04/30/23 16:02 16:10 16:10 WBC 10.6 RBC 5.56 Hgb 16.7 Hct 50.0 MCV 89.9 MCH 30.0 MCHC 33.4 RDW 13.6 Plt Count 337 MPV 9.7 Neut # (Auto) 6.4 Lymph # (Auto) 2.8 Sherman # (Auto) 0.8 Eos # (Auto) 0.4 Baso # (Auto) 0.1 Absolute Nucleated RBC 0.00 Nucleated RBC % 0.0 Sodium 137 Potassium 3.8 Chloride 101 Carbon Dioxide 29 Anion Gap 7.0 BUN 17 Creatinine 1.0 Estimated GFR (MDRD) 87 L Glucose 94 Calcium 10.1 Magnesium 1.8 Total Bilirubin 0.6 AST 31 ALT 51 Alkaline Phosphatase 75 Total Protein 7.9 Albumin 4.7 Globulin 3.2 Albumin/Globulin Ratio 1.5 Lipase 13 TSH 2.12 Urine Color YELLOW Urine Clarity CLEAR Urine pH 6.5 Ur Specific [place] 1.015 Urine Protein NEGATIVE Urine Glucose (UA) NEGATIVE Urine Ketones NEGATIVE Urine Occult Blood NEGATIVE Urine Nitrite NEGATIVE Urine Bilirubin NEGATIVE Urine Urobilinogen 0.2 (NORMAL) Ur Leukocyte Esterase NEGATIVE Ur Microscopic Review NOT INDICATED Urine Culture Comments NOT INDICATED Salicylates < 1.5 Urine Opiates Screen NEGATIVE Ur Oxycodone Screen NEGATIVE Urine Methadone Screen NEGATIVE Ur Propoxyphene Screen NEGATIVE Acetaminophen 0.2 Ur Barbiturates Screen NEGATIVE Ur Tricyclics Screen POSITIVE H Ur Phencyclidine Scrn NEGATIVE Ur Amphetamine Screen NEGATIVE U Methamphetamines Scrn NEGATIVE U Benzodiazepines Scrn NEGATIVE Urine Cocaine Screen NEGATIVE U Cannabinoids Screen NEGATIVE Ethyl Alcohol < 10.0 PD Medical Decision Making - ED course Complexity details: reviewed results, re-evaluated patient, considered differential, d/w patient ED course: 33-year-old male with alcohol withdrawal. Given a dose of Librium here. Given IV fluids. No significant lab abnormalities. Feels much better. No longer shaky. Patient does not want to go to detox. Has never had seizures. No indication for hospitalization. Patient ambulating without difficulty and tolerating p.o. without difficulty. Patient counseled regarding signs and symptoms for which I believe and urgent re-evaluation would be necessary. Patient with good understanding of and agreement to plan and is comfortable going home at this time This document was made in part using voice recognition software. While efforts are made to proofread this document, sound alike and grammatical errors may occur. Departure - Departure Disposition: 01 Home, Self Care Clinical Impression: Alcohol withdrawal Qualifiers: Complication of substance-induced condition: uncomplicated Qualified Code(s): F10.930 - Alcohol use, unspecified with withdrawal, uncomplicated Condition: Good Instructions: ED Withdrawal Alcohol Follow-Up: your,doctor in 3 days [Other] Prescriptions: chlordiazePOXIDE [Librium] 25 mg PO Q6H PRN #10 cap PRN Reason: Alcohol Withdrawal Comments: You can follow-up with your doctor as needed for further care. Please return if you worsen. [facility] prescriptions were sent to [facility] in [place]. If you change your mind about detox he can contact [facility] directly. Their information is below. Contact: [facility] [address] [place] [phone] Fax: Forms: PCP List Discharge Date/Time: 04/30/23 17:17
[2023-04-30] MEDS ORDERED: SODIUM CHLORIDE 0.9% 1,000 ML IV STA (15:59)
[2023-04-30 16:09] LABS: MUDS CUTOFF CONCENTRATIONS CUTOFF CONC BELOW:
[2023-04-30 16:14] LABS: BILIRUBIN,URINE NEGATIVE (NEGATIVE); GLUCOSE, URINE (UA) NEGATIVE (NEGATIVE); KETONES,URINE (UA) NEGATIVE (NEGATIVE); LEUKOCYTE ESTERASE, URINE NEGATIVE (NEGATIVE); NITRITE,URINE NEGATIVE (NEGATIVE); OCCULT BLOOD,URINE NEGATIVE (NEGATIVE); PH,URINE 6.5 PH (5.0-7.5); PROTEIN,URINE NEGATIVE (NEGATIVE); UROBILINOGEN,URINE 0.2 (NORMAL) E.U./dL (NORMAL)
[2023-04-30 16:17] LABS: CLARITY,URINE CLEAR (CLEAR)
[2023-04-30 16:18] LABS: BASOPHILS # (AUTO) 0.1 10^3/uL (0.0-0.1); BASOPHILS % (AUTO) 0.7 %; EOSINOPHILS # (AUTO) 0.4 10^3/uL (0.0-0.7); EOSINOPHILS % (AUTO) 3.5 %; HGB - HEMOGLOBIN 16.7 g/dL (14.0-18.0); LYMPHOCYTES # (AUTO) 2.8 10^3/uL (1.5-3.5); LYMPHOCYTES % (AUTO) 26.9 %; MEAN CORPUSCULAR HGB CONC 33.4 g/dL (32.0-36.0); MEAN CORPUSCULAR VOLUME 89.9 fL (80.0-94.0); MEAN PLATELET VOLUME 9.7 fL (7.4-11.4); MONOCYTES # (AUTO) 0.8 10^3/uL (0.0-1.0); MONOCYTES % (AUTO) 7.9 %; NEUTROPHILS # (AUTO) 6.4 10^3/uL (1.5-6.6); NEUTROPHILS % (AUTO) 60.1 %; PLT - PLATELET COUNT 337 10^3/uL (130-450); RED BLOOD COUNT 5.56 10^6/uL (4.70-6.10); RED CELL DISTRIBUTION WIDTH 13.6 % (12.0-15.0); WHITE BLOOD COUNT 10.6 x10^3/uL (4.8-10.8)
[2023-04-30 16:25] LABS: AMPHETAMINE SCREEN,URINE NEGATIVE (NEGATIVE); BENZODIAZEPINES SCREEN, URINE NEGATIVE (NEGATIVE); COCAINE SCREEN URINE NEGATIVE (NEGATIVE); METHAMPHETAMINES SCREEN, URINE NEGATIVE (NEGATIVE); OPIATE SCREEN, URINE NEGATIVE (NEGATIVE); THC CANNABINOID SCREEN, URINE NEGATIVE (NEGATIVE)
[2023-04-30 16:26] LABS: BARBITURATE SCREEN,UR NEGATIVE (NEGATIVE); METHADONE SCREEN, URINE NEGATIVE (NEGATIVE); OXYCODONE SCREEN, URINE NEGATIVE (NEGATIVE); PROPOXYPHENE SCREEN, URINE NEGATIVE (NEGATIVE); TRICYCLIC ANTIDEPRESSANT,URINE POSITIVE (NEGATIVE)
[2023-04-30 16:36] LABS: ACETAMINOPHEN 0.2 ug/mL; ALBUMIN 4.7 g/dL (3.2-5.5); ALBUMIN/GLOBULIN RATIO 1.5 (1.0-2.2); ALKALINE PHOSPHATASE 75 IU/L (42-121); ALT ALANINE AMINOTRANSFERASE 51 IU/L (10-60); AST ASPARTATE AMINOTRANSFERASE 31 IU/L (10-42); BILIRUBIN,TOTAL 0.6 mg/dL (0.2-1.0); BUN - BLOOD UREA NITROGEN 17 mg/dL (6-20); CALCIUM 10.1 mg/dL (8.5-10.3); CARBON DIOXIDE - CO2 29 mmol/L (21-32); CHLORIDE 101 mmol/L (101-111); ETOH - ETHANOL < 10.0 mg/dL; GFR - MDRD 87 (>89); GLUCOSE 94 mg/dL (74-104); LIPASE 13 U/L (11-82); MAGNESIUM 1.8 mg/dL (1.7-2.3); POTASSIUM 3.8 mmol/L (3.5-4.5); SODIUM 137 mmol/L (135-145); TOTAL PROTEIN 7.9 g/dL (6.4-8.9)
[2023-04-30 16:40] LABS: SALICYLATE < 1.5 mg/dL
[2023-04-30 16:51] LABS: THYROID STIMULATING HORMONE 2.12 uIU/mL (0.34-5.60)
[2023-04-30 16:55] VITALS: BP 140/79; O2SAT 100
== END 2023-04-30 17:17 | disposition home or self-care (01) ==
LOC: ED 15:30
DX: F10.230 Alcohol dependence with withdrawal, uncomplicated (principal); Y90.0 Blood alcohol level of less than 20 mg/100 ml; F17.200 Nicotine dependence, unspecified, uncomplicated; Z79.899 Other long term (current) drug therapy
CPT/HCPCS: 36415; 80053; 80306; 80307; 81003; 83690; 83735; 84443; 85025; 99283; A9270; G0480; 80320; 80329; 81001; 87086

== ENCOUNTER 2023-05-06 12:28 | Emergency (ER) | payer MEDICARE, MEDICAID ==
[2023-05-06 13:04] VITALS: BP 148/96; O2SAT 100
--- NOTE | 2023-05-06 13:13 | ED Physician Documentation ---
History of Present Illness - Stated complaint Stated Complaint: WITHDRAWL - Chief complaint Chief Complaint: General - Additonal information Additional information: 33-year-old male presents emergency department for evaluation of anxiety, in somnia and generalized malaise. He was seen in this emergency department on 27 April for concern of alcohol withdrawal. He declined detox at that time and was discharged with a prescription of Librium. He states it has been 8 days since he last drank. He is finding that he is anxious and not sleeping well at night. He is having no headache, tremors hallucinations nausea or vomiting. States that he just feels unwell. He denies thoughts of self-harm or harm to others. He lives alone and feels safe by himself. Review of Systems Constitutional: reports: Fatigue Cardiac: reports: Reviewed and negative Respiratory: reports: Reviewed and negative GI: reports: Reviewed and negative : reports: Reviewed and negative Musculoskeletal: reports: Reviewed and negative Psychiatric: reports: Anxiety, Insomnia. denies: Suicidal, Homicidal, Hallucinations, Delusions Endocrine: reports: Reviewed and negative PD PAST MEDICAL HISTORY - Past Medical History Past Medical History: Yes Cardiovascular: None Respiratory: Asthma, Pneumonia Neuro: None Endocrine/Autoimmune: None GI: None : None HEENT: None Psych: Depression, Anxiety, Bipolar disorder, Schizophrenia Musculoskeletal: None Derm: None - Past Surgical History Past Surgical History: No - Present Medications Home Medications: Ambulatory Orders Medication Instructions Recorded Confirmed OLANZapine [Zyprexa] 20 mg PO DAILY 04/30/23 04/30/23 Quetiapine Fumarate [Seroquel] 50 mg PO DAILY 04/30/23 04/30/23 buPROPion HCL [Bupropion Xl] 150 mg PO QPM 04/30/23 04/30/23 chlordiazePOXIDE [Librium] 25 mg PO Q6H PRN #10 cap 04/30/23 hydrOXYzine PAMOATE [Vistaril] 25 mg PO TID PRN #30 cap 05/06/23 - Allergies Allergies/Adverse Reactions: Allergies Allergy/AdvReac Type Severity Reaction Status Date / Time cephalexin Allergy Unknown Verified 04/30/23 15:35 - Social History Does the pt smoke?: Yes Smoking Status: Current every day smoker Does the pt drink ETOH?: No Does the pt have substance abuse?: No - Immunizations Immunizations are current?: Yes - POLST Patient has POLST: No PD ED PE NORMAL - General General: Alert and oriented X 3, No acute distress - Neck Neck: Supple, no meningeal sign - Cardiac Cardiac: RRR, No murmur - Respiratory Respiratory: No respiratory distress, Clear bilaterally - Abdomen Abdomen: Normal bowel sounds, Soft, Non tender - Back Back: No CVA TTP - Derm Derm: Normal color, Warm and dry, No rash - Extremities Extremities: No deformity - Neuro Neuro: Alert and oriented X 3 Eye Opening: Spontaneous Motor: Obeys Commands Verbal: Oriented GCS Score: 15 Results - Vitals Vitals: Vital Signs - 24 hr 05/06/23 12:55 Temperature 36.6 C Heart Rate 85 Respiratory 16 Rate Blood Pressure 148/96 H O2 Saturation 100 Oxygen O2 Source Room air PD Medical Decision Making - ED course Complexity details: reviewed results, d/w patient ED course: This is a very well-appearing 33-year-old male who presents emergency department for evaluation of insomnia, anxiety and generally feeling unwell. He has been sober from alcohol now for 8 days. Seen in late April for alcohol withdrawal and at that time declined detox. Was discharged with Librium. Presentation to the ER he does not appear to be in alcohol withdrawal. I reviewed his laboratory findings from the most recent ER visit and found no acute worrisome abnormalities of concern and I do not feel that they need to be repeated today. Patient's most pressing concern is anxiety and insomnia. I prescribed some anxiety medication, hydroxyzine, for him to use 2-3 times a day. However I dis cussed with patient that some of the symptoms may be stemming from now living in sobriety. I have encouraged him to seek out cognitive/talk therapy or attend local AA meetings. He is psychologically safe without any thoughts of self-harm or harm to others. He feels comfortable discharge home and felt that pursuing talk therapy would be helpful for him. The usual emergent return precautions for worsening symptoms were discussed Departure - Departure Disposition: Home, Self Care Clinical Impression: Anxiety Condition: Stable Instructions: ED Stress React Prescriptions: hydrOXYzine PAMOATE [Vistaril] 25 mg PO TID PRN #30 cap PRN Reason: Anxiety Comments: Clay congratulations on maintaining her sobriety over the last week. Stopping heavy drinking can be very difficult. Often when people have stopped drinking they become more aware of their thoughts and feelings which can increase their anxiety. I would recommend that you fill the prescription for the hydroxyzine and take it 2 or 3 times a day as needed for anxiety. However the longer portion of your recovery is going to include some talk or cognitive therapy in order to understand how to manage thoughts feelings and emotions and sobriety moving forward. Even attending local AA meetings can be helpful. I went to reassure you that all of your labs obtained last week were essentially normal. This is a good indicator of your overall health. Please try and get regular sleep up to 8 hours a night, eat healthy and stay well-hydrated. Return to the ER for any new or worsening symptoms.
== END 2023-05-06 13:29 | disposition home or self-care (01) ==
LOC: ED 12:28
DX: F41.9 Anxiety disorder, unspecified (principal); F17.200 Nicotine dependence, unspecified, uncomplicated
CPT/HCPCS: 99281; 99283

== ENCOUNTER 2023-08-01 15:59 | Emergency (ER) | payer MEDICARE, MEDICAID ==
[2023-08-01 16:18] VITALS: BP 160/95; O2SAT 99
--- NOTE | 2023-08-01 16:29 | ED Physician Documentation ---
PD HPI MHE - Stated complaint Stated Complaint: MHE/PANIC ATTACK - Chief complaint Chief Complaint: MHE - History obtained from History obtained from: Patient - History of Present Illness Primary symptom: Anxiety Pain level max: 0 Pain level now: 0 - Additional information Additional information: Patient is a 33-year-old male with a history of schizophrenia and anxiety. States that he started feeling like he is having a panic attack today. He is taking his olanzapine as prescribed. Denies any alcohol use or methamphetamine use. He states that Xanax has helped in the past. He requested a dose of Xanax. He is not suicidal, not homicidal. Not hallucinating. Otherwise he feels well. He does smoke tobacco regularly. No chest pain. No shortness of breath. No abdominal pain, nausea, vomiting. No diarrhea. No fevers. No chills. Review of Systems Constitutional: denies: Fever, Chills Respiratory: denies: Cough GI: denies: Vomiting, Diarrhea Skin: denies: Rash Musculoskeletal: denies: Neck pain, Back pain Neurologic: denies: Headache PD PAST MEDICAL HISTORY - Past Medical History Cardiovascular: None Respiratory: Asthma, Pneumonia Neuro: None Endocrine/Autoimmune: None GI: None : None HEENT: None Psych: Depression, Anxiety, Bipolar disorder, Schizophrenia Musculoskeletal: None Derm: None - Past Surgical History Past Surgical History: No - Present Medications Home Medications: Ambulatory Orders Medication Instructions Recorded Confirmed OLANZapine [Zyprexa] 20 mg PO DAILY 04/30/23 08/01/23 ALPRAZolam [Xanax] 0.5 mg PO Q8H PRN #8 tablet 08/01/23 - Allergies Allergies/Adverse Reactions: Allergies Allergy/AdvReac Type Severity Reaction Status Date / Time cephalexin Allergy Nausea Verified 08/01/23 16:12 - Social History Does the pt smoke?: Yes Smoking Status: Current every day smoker Does the pt drink ETOH?: No Does the pt have substance abuse?: No - Immunizations Immunizations are current?: Yes - POLST Patient has POLST: No PD ED PE NORMAL - Vitals Vital signs reviewed: Yes - General General: Alert and oriented X 3, No acute distress - HEENT HEENT: PERRL, Moist mucous membranes - Neck Neck: Supple, no meningeal sign - Cardiac Cardiac: RRR, Strong equal pulses - Respiratory Respiratory: No respiratory distress, Clear bilaterally - Abdomen Abdomen: Soft, Non tender, Non distended - Derm Derm: Warm and dry - Neuro Neuro: Alert and oriented X 3 - Psych Psych: Normal mood, Normal affect Results - Vitals Vitals: Vital Signs - 24 hr 08/01/23 16:04 Temperature 36.3 C L Heart Rate 99 Respiratory 18 Rate Blood Pressure 160/95 H O2 Saturation 99 Oxygen O2 Source Room air PD Medical Decision Making - ED course Complexity details: reviewed results, re-evaluated patient, considered differential, d/w patient ED course: Patient was given a dose of Xanax here. Anxiety resolved. States he feels much better. He states often his anxiety will last for 2 to 3 days, given that it is the weekend, will prescribe a small amount of Xanax for him. Informed him that all further refills will need to come from his primary care provider. Patient is well-appearing, nontoxic. Afebrile. No suicidal or homicidal ideation. Patient counseled regarding signs and symptoms for which I believe and urgent re-evaluation would be necessary. Patient with good understanding of and agreement to plan and is comfortable going home at this time This document was made in part using voice recognition software. While efforts are made to proofread this document, sound alike and grammatical errors may occur. Departure - Departure Disposition: 01 Home, Self Care Clinical Impression: Anxiety attack Condition: Good Instructions: ED Panic Attack Follow-Up: your,doctor in 1 week [Other] Prescriptions: ALPRAZolam [Xanax] 0.5 mg PO Q8H PRN #8 tablet PRN Reason: Anxiety Comments: You were given a dose of Xanax today and your anxiety seems to have improved. You have indicated you are not suicidal or homicidal. Please return if you worsen. Please follow-up with your doctor for further care. Your prescriptions were sent to [facility]. Forms: PCP List
[2023-08-01] MEDS: ALPRAZolam 0.25 MG TABLET PO STA (16:31)
== END 2023-08-01 17:06 | disposition home or self-care (01) ==
LOC: ED 15:59
DX: F41.0 Panic disorder [episodic paroxysmal anxiety] (principal); F17.200 Nicotine dependence, unspecified, uncomplicated
CPT/HCPCS: 99282; 99283; A9270

== ENCOUNTER 2023-08-26 11:26 | Emergency (ER) | payer MEDICARE, MEDICAID ==
[2023-08-26 12:05] VITALS: O2SAT 100
[2023-08-26 12:09] LABS: AMPHETAMINE SCREEN,URINE NEGATIVE (NEGATIVE); BARBITURATE SCREEN,UR NEGATIVE (NEGATIVE); BENZODIAZEPINES SCREEN, URINE NEGATIVE (NEGATIVE); BUPRENORPHINE SCREEN, URINE NEGATIVE (NEGATIVE); COCAINE SCREEN URINE NEGATIVE (NEGATIVE); METHADONE SCREEN, URINE NEGATIVE (NEGATIVE); METHAMPHETAMINES SCREEN, URINE NEGATIVE (NEGATIVE); OPIATE SCREEN, URINE NEGATIVE (NEGATIVE); OXYCODONE SCREEN, URINE NEGATIVE (NEGATIVE); THC CANNABINOID SCREEN, URINE NEGATIVE (NEGATIVE); TRICYCLIC ANTIDEPRESSANT,URINE NEGATIVE (NEGATIVE)
--- NOTE | 2023-08-26 12:22 | ED Physician Documentation ---
PD HPI MHE - Stated complaint Stated Complaint: MHE - Chief complaint Chief Complaint: MHE - Additional information Additional information: 33-year-old male with schizophrenia presents emergency department for what he describes as a panic attack. Patient says that he has been taking his routine scheduled olanzapine has not missed any recent doses he says that he is unable to identify what triggered his panic attack and anxiety but he said last time he was here he received some Xanax which significantly helped with his symptoms. Patient says that he is here for Xanax and hopefully Xanax for refill for his increased panic and anxiety. PD PAST MEDICAL HISTORY - Past Medical History Past Medical History: Yes Cardiovascular: None Respiratory: Asthma, Pneumonia Neuro: None Endocrine/Autoimmune: None GI: None : None HEENT: None Psych: Depression, Anxiety, Bipolar disorder, Schizophrenia Musculoskeletal: None Derm: None - Past Surgical History Past Surgical History: No - Present Medications Home Medications: Ambulatory Orders Medication Instructions Recorded Confirmed OLANZapine [Zyprexa] 20 mg PO DAILY 04/30/23 08/01/23 Alprazolam [Xanax] 0.25 mg PO TID PRN #6 tablet 08/26/23 - Allergies Allergies/Adverse Reactions: Allergies Allergy/AdvReac Type Severity Reaction Status Date / Time cephalexin Allergy Nausea Verified 08/26/23 11:50 - Social History Does the pt smoke?: Yes Smoking Status: Current every day smoker Does the pt drink ETOH?: No Does the pt have substance abuse?: No - Immunizations Immunizations are current?: Yes - POLST Patient has POLST: No PD ED PE NORMAL - Vitals Vital signs reviewed: Yes - General General: Alert and oriented X 3, No acute distress, Well developed/nourished - HEENT HEENT: Atraumatic, PERRL - Cardiac Cardiac: RRR, No murmur, No gallop - Respiratory Respiratory: No respiratory distress, Clear bilaterally - Abdomen Abdomen: Normal bowel sounds, Soft, Non tender, No organomegaly - Psych Psych: Normal mood, Normal affect, Other (No suicidal homicidal ideation) Results - Vitals Vitals: Vital Signs - 24 hr 08/26/23 08/26/23 11:32 14:51 Temperature 36.9 C Heart Rate 80 87 Respiratory 16 20 Rate Blood Pressure 158/99 H 146/86 H O2 Saturation 100 100 Oxygen O2 Source Room air - EKG (time done) 114 EKG releavant findings:: EKG personally interpreted by author of this note. Relevant findings are: Rate: Rate (enter#) (73) Rhythm: NSR [place]: LAD Intervals: LBBB Ischemia: ST elevation c/w repol Compare to prior EKG: Unchanged from prior EKG Computer interpretation: Agree with computer - Labs Labs: Laboratory Tests 08/26/23 08/26/23 11:44 12:09 Urine Opiates Screen NEGATIVE Ur Buprenorphine Scrn NEGATIVE Ur Oxycodone Screen NEGATIVE Urine Methadone Screen NEGATIVE Ur Barbiturates Screen NEGATIVE Ur Tricyclics Screen NEGATIVE Ur Phencyclidine Scrn NEGATIVE Ur Amphetamine Screen NEGATIVE U Methamphetamines Scrn NEGATIVE U Benzodiazepines Scrn NEGATIVE Urine Cocaine Screen NEGATIVE U Cannabinoids Screen NEGATIVE Ur Drug Screen Comment CUTOFF CONC BELOW: Ethyl Alcohol < 10.0 PD Medical Decision Making - ED course ED course: This patient presents with symptoms consistent with acute anxiety reaction / panic attack. Low suspicion for acute cardiopulmonary process including ACS, PE, or thoracic aortic dissection. Denies any ingestions or any other medical complaints. No evidence of alcohol withdrawal symptoms. Given history and physical presentation not consistent with overt toxidrome, ingestion. Presentation not consistent with a medical emergency at this time. No acute indication for psychiatric consultation (without SI/HI, AH/VH). Patient was given Xanax here in the emergency department as well as a short prescription of Xanax outpatient he was told to follow-up primary care provider for further evaluation of possible adjustment of his antipsychotic medications. Return precautions given he continues to deny suicidal homicidal ideation and I believe that patient is safe for discharge at this time. Departure - Departure Disposition: 01 Home, Self Care Clinical Impression: Panic attack Instructions: ED Panic Attack Prescriptions: Alprazolam [Xanax] 0.25 mg PO TID PRN #6 tablet PRN Reason: Anxiety Comments: Thank you for trusting us with your care, we have evaluated you for panic attack and anxiety. You are given some Xanax here in the emergency department which you report alleviated all your symptoms. I have [facility] very [facility] in [place] as we discussed I really want you to follow- up with your primary care provider to see if you need a medication adjustment and to consider taking something like hydroxyzine as needed for any anxiety. Please come back to the emergency department for having any suicidal, homicidal ideation, any chest pain or shortness of breath or any other concerning symptoms. Forms: PCP List Discharge Date/Time: 08/26/23 14:53
[2023-08-26] MEDS: ALPRAZolam 0.25 MG TABLET PO STA ×3 (12:47→14:00)
[2023-08-26 15:04] VITALS: BP 146/86
== END 2023-08-26 14:53 | disposition home or self-care (01) ==
LOC: ED 11:26
DX: F41.0 Panic disorder [episodic paroxysmal anxiety] (principal); F17.200 Nicotine dependence, unspecified, uncomplicated
CPT/HCPCS: 36415; 80306; 93005; 99283; 99284; A9270; G0480; 82077